=== PATIENT | female | born 1965 | race Caucasian/White ===

== ENCOUNTER 2017-08-14 18:04 | Inpatient (IN) | payer SELFPAY ==
[2017-08-14] MEDS ORDERED: ALBUTEROL SULFATE 0.083% NEB 2.5 MG/3 ML AMPUL NEB ONE ×4 (18:30→19:32)
[2017-08-14] MEDS ORDERED: METHYLPREDNISOLONE INJ 125 MG/2 ML SDV IV ONE (18:30)
[2017-08-14] MEDS ORDERED: IPRATROPIUM/ALBUTEROL 0.5-2.5 MG/3 ML AMPUL NEB ONE (18:30)
--- NOTE | 2017-08-14 18:31 | ER Document Report ---
ED Respiratory Problem - General Chief Complaint: Shortness Of Breath Stated Complaint: SHORTNESS OF BREATH,COUGH Time Seen by Provider: 08/14/17 18:29 Mode of Arrival: Ambulatory Information source: Patient TRAVEL OUTSIDE OF THE [place] IN LAST 30 DAYS: No - HPI Patient complains to provider of: COPD, Cough, Short of breath Onset: Last week Duration: Worse/persistent Quality of pain: No pain Context: Hx COPD, Smoker Short of Breath: Severe Chest pain/discomfort: Tightness Cough: Productive Sputum amount: Small Sputum color: Green Sputum consistency: Mucoid Associated symptoms: Congestion, Cough, Headache, Short of breath, Wheezing Similar symptoms previously: Yes Recently seen / treated by doctor: Yes Notes: Patient is a 52-year-old female presenting to the emergency room from [facility] complaining of cough 1 week which is productive of greenish colored phlegm with shortness of breath and difficulty breathing, as well as a headache and body aches, patient is a heavy smoker smoking at least 1 pack per day for many years, denies any sick contacts, she has had some nausea and vomiting as well, pulse ox was 81% in triage area - Related Data Allergies/Adverse Reactions: No Known Allergies Allergy (Verified 08/14/17 18:12) Past Medical History - General Information source: Patient - Social History Smoking Status: Current Every Day Smoker Family History: Reviewed & Not Pertinent Patient has suicidal ideation: No Patient has homicidal ideation: No - Past Medical History Cardiac Medical History: Denies: Hx Heart Attack, Hx Hypertension Pulmonary Medical History: Denies: Hx Asthma Neurological Medical History: Denies: Hx Cerebrovascular Accident, Hx Seizures Renal/ Medical History: Denies: Hx Peritoneal Dialysis GI Medical History: Denies: Hx Hepatitis, Hx Hiatal Hernia, Hx Ulcer Infectious Medical History: Denies: Hx Hepatitis Past Surgical History: Reports: Hx Hysterectomy. Denies: Hx Mastectomy, Hx Open Heart Surgery, Hx Pacemaker Review of Systems - Review of Systems Constitutional: No symptoms reported EENT: No symptoms reported Cardiovascular: No symptoms reported Respiratory: See HPI Gastrointestinal: See HPI Genitourinary: No symptoms reported Female Genitourinary: No symptoms reported Musculoskeletal: No symptoms reported Skin: No symptoms reported Hematologic/Lymphatic: No symptoms reported Neurological/Psychological: Headaches -: Yes All other systems reviewed and negative Physical Exam - Vital signs Vitals: Temp Pulse Resp BP Pulse Ox 98.3 F 95 20 144/71 H 81 L 08/14/17 18:13 08/14/17 18:13 08/14/17 18:13 08/14/17 18:13 08/14/17 18:13 Interpretation: Hypoxic - General General appearance: Appears well, Alert - HEENT Head: Normocephalic, Atraumatic Eyes: Normal Pupils: PERRL - Respiratory Respiratory status: Labored, Tachypnea Chest status: Nontender Breath sounds: Productive cough, Rhonchi, Wheezing Chest palpation: Normal - Cardiovascular Rhythm: Regular Heart sounds: Normal auscultation Murmur: No - Abdominal Inspection: Normal Distension: No distension Bowel sounds: Normal Tenderness: Nontender Organomegaly: No organomegaly - Back Back: Normal, Nontender - Extremities General upper extremity: Normal inspection, Nontender, Normal color, Normal ROM , Normal temperature General lower extremity: Normal inspection, Nontender, Normal color, Normal ROM , Normal temperature, Normal weight bearing. No: Jeyson's sign - Neurological Neuro grossly intact: Yes Cognition: Normal Orientation: AAOx4 Brent Coma Scale Eye Opening: Spontaneous [place] Coma Scale Verbal: Oriented [place] Coma Scale Motor: Obeys Commands Brent Coma Scale Total: 15 Speech: Normal Motor strength normal: LUE, RUE, LLE, RLE Sensory: Normal - Psychological Associated symptoms: Normal affect, Normal mood - Skin Skin Temperature: Warm Skin Moisture: Dry Skin Color: Normal Course - Re-evaluation Re-evalutation: 08/14/17 20:19 Patient with symptoms consistent with COPD exacerbation, she is a longtime smoker about 1 pack per day, says she is quitting now, remains hypoxic and hypercapnic, although does not appear to be in respiratory distress, she does have wheezing in all [place], respiratory has been called and she will be placed on BiPAP, hospitalist was called who agrees with admission to [facility] for further evaluation and treatment - Vital Signs Vital signs: Temp Pulse Resp BP Pulse Ox 98.3 F 95 22 H 135/73 H 91 L 08/14/17 18:13 08/14/17 18:13 08/14/17 19:02 08/14/17 19:02 08/14/17 19:02 - Laboratory Result Diagrams: 08/14/17 18:21 08/14/17 18:21 Laboratory results interpreted by me: 08/14/17 08/14/17 08/14/17 18:20 18:21 18:21 Hgb 16.6 H Hct 47.8 H MCV 103 H MCH 35.8 H RDW 15.4 H VBG pCO2 76.0 H* VBG HCO3 38.8 H Sodium 147.5 H Carbon Dioxide 35 H Creatinine 0.48 L Glucose 163 H - Diagnostic Test Radiology reviewed: Image reviewed, Reports reviewed - EKG Interpretation by Me EKG shows normal: Sinus rhythm Rate: Normal Rhythm: NSR - Transfer of Care Care transferred to following provider: Dr. Zamorano Critical Care Note - Critical Care Note Total time excluding time spent on procedures (mins): 40 Comments: Patient arrived hypoxic, in moderate respiratory distress from COPD exacerbation , requiring BiPAP, multiple re-evaluations and interventions, and admission to the IMCU Discharge - Discharge Clinical Impression: COPD exacerbation Condition: Serious Disposition: ADMITTED INPATIENT Admitting Provider: Hospitalist Unit Admitted: [facility] Referrals: PAPO NEGRO MD [Primary Care Provider] - Follow up as needed
[2017-08-14 18:47] LABS: ABSOLUTE EOSINOPHILS # (AUTO) 0.1 10^3/uL (0.0-0.6); ABSOLUTE LYMPHOCYTES (AUTO) 1.1 10^3/uL (0.5-4.7); ABSOLUTE MONOCYTES (AUTO) 0.5 10^3/uL (0.1-1.4); ABSOLUTE NEUT (AUTO) 3.3 10^3/uL (1.7-8.2); BASOPHILS % (AUTO) 0.5 % (0-2); EOSINOPHILS % (AUTO) 1.8 % (0-6); HEMATOCRIT 47.8 % (36.0-47.0); HEMOGLOBIN 16.6 g/dL (12.0-15.5); LYMPHOCYTES % (AUTO) 21.5 % (13-45); MEAN CORPUSCULAR HEMOGLOBIN 35.8 pg (27.0-33.4); MEAN CORPUSCULAR HGB CONC 34.7 g/dL (32.0-36.0); MEAN CORPUSCULAR VOLUME 103 fl (80-97); MONOCYTES % (AUTO) 9.6 % (3-13); RED BLOOD COUNT 4.65 10^6/uL (3.72-5.28); RED CELL DISTRIBUTION WIDTH 15.4 % (11.5-14.0); SEGMENTED NEUTROPHILS % (AUTO) 66.6 % (42-78); WHITE BLOOD COUNT 4.9 10^3/uL (4.0-10.5)
--- NOTE | 2017-08-14 18:52 | RADIOLOGY REPORT (SQ) ---
EXAM DESCRIPTION: CHEST SINGLE VIEW COMPLETED DATE/TIME: 08/14/2017 6:44 pm REASON FOR STUDY: db COMPARISON: None. EXAM PARAMETERS: NUMBER OF VIEWS: One view. TECHNIQUE: Single frontal radiographic view of the chest acquired. RADIATION DOSE: NA LIMITATIONS: None. FINDINGS: LUNGS AND PLEURA: Lungs appear somewhat hyperexpanded with flattening of the diaphragms. Mild interstitial changes are suggested. There are no acute infiltrates or effusions. MEDIASTINUM AND HILAR STRUCTURES: No masses. Contour normal. HEART AND VASCULAR STRUCTURES: Heart normal in size. Normal vasculature. BONES: No acute findings. HARDWARE: None in the chest. OTHER: No other significant finding. IMPRESSION: There appear to be mild chronic lung changes with no acute cardiopulmonary disease TECHNICAL DOCUMENTATION: JOB ID: [id number] [employer]- All Rights Reserved
[2017-08-14 19:08] LABS: ALANINE AMINOTRANSFERASE 17 U/L (9-52); ALBUMIN 3.8 g/dL (3.5-5.0); ALKALINE PHOSPHATASE 84 U/L (38-126); ANION GAP 12 (5-19); ASPARTATE AMINO TRANSFERASE 21 U/L (14-36); BILIRUBIN,DIRECT 0.4 mg/dL (0.0-0.4); BILIRUBIN,TOTAL 0.4 mg/dL (0.2-1.3); BLOOD UREA NITROGEN 18 mg/dL (7-20); CALCIUM 9.2 mg/dL (8.4-10.2); CARBON DIOXIDE 35 mmol/L (22-30); CHLORIDE 101 mmol/L (98-107); CREATINE KINASE 55 U/L (30-135); CREATININE RESULT 0.48 mg/dL (0.52-1.25); GLUCOSE 163 mg/dL (75-110); POTASSIUM 3.9 mmol/L (3.6-5.0); SODIUM 147.5 mmol/L (137-145); TOTAL PROTEIN 7.2 g/dL (6.3-8.2)
[2017-08-14 19:18] LABS: CREATINE KINASE MB 0.52 ng/mL (<4.55)
[2017-08-14 19:20] LABS: TROPONIN I < 0.012 ng/mL
[2017-08-14 19:36] LABS: VENOUS BLOOD BASE EXCESS 8.7 mmol/L; VENOUS BLOOD HCO3 38.8 mmol/L (20-32); VENOUS BLOOD PH 7.33 (7.30-7.42)
[2017-08-14] MEDS ORDERED: GUAIFENESIN SYRP 200 MG/10 ML UDC PO PRN (20:16)
[2017-08-14 20:35] LABS: APPEARANCE,URINE SLIGHTLY-CLOUDY; BILIRUBIN,URINE NEGATIVE (NEGATIVE); GLUCOSE, URINE NEGATIVE (NEGATIVE); KETONES,URINE TRACE mg/dL (NEGATIVE); LEUKOCYTE ESTERASE,URINE NEGATIVE (NEGATIVE); NITRITE,URINE NEGATIVE (NEGATIVE); PROTEIN,URINE 30 mg/dL (NEGATIVE)
[2017-08-14] MEDS ORDERED: CHLORPHENIRAMINE MALEATE 4 MG TABLET PO ONE (22:00)
[2017-08-14] MEDS: HEPARIN SOD (PORCINE) 5,000 UNIT/ML 1 ML SYRINGE SUBCUT SCH (22:24)
[2017-08-14] MEDS: FLUTICASONE NASAL SPRAY 50 MCG/SPRY 120 SPRAY/16 GM NASL SCH (22:24)
[2017-08-14] MEDS: LEVOFLOXACIN 750 MG/D5W RTU 750 MG/150 ML RTUPB IV SCH (22:25)
[2017-08-14] MEDS: GUAIFENESIN 600 MG TABLET.SA PO SCH (22:26)
[2017-08-14] MEDS: ACETAMINOPHEN 325 MG TABLET PO PRN (22:27)
[2017-08-15] MEDS: IPRATROPIUM/ALBUTEROL 0.5-2.5 MG/3 ML AMPUL NEB SCH ×4 (01:57→20:56)
--- NOTE | 2017-08-15 05:20 | PDOC H&P ---
History of Present Illness Admission Date/PCP: 08/14/17 20:16 PAPO NEGRO MD Patient complains of: Shortness of breath History of Present Illness: NELLI CHÁVEZ is a 52 year old female with a past medical history of maxillary sinusitis, COPD and tobacco dependence who has been without medications for several months secondary to financial barriers. Over the last week she has had a productive cough of green colored phlegm and worsening shortness of breath. Prompting her to seek evaluation with primary care at [facility] she is found to have tachypnea, tachycardia and pulse oximetry of 81% on room air and referred to the emergency room. Workup suggests exacerbation of COPD with bronchitis multiple nebulizer treatments of albuterol and Atrovent lead to only mild improvement. She is started on empiric antibiotics, Solu-Medrol and referred to the hospitalist for admission. Patient admits flare of sinusitis with postnasal drip and uncontrolled GERD. She denies chest pain nausea vomiting. Past Medical History Cardiac Medical History: Denies: Myocardial Infarction, Hypertension Pulmonary Medical History: Reports: Bronchitis, Chronic Obstructive Pulmonary Disease (COPD), Other - Chronic maxillary sinusitis Denies: Asthma Neurological Medical History: Reports: Migraine Denies: Seizures GI Medical History: Denies: Hepatitis, Hiatal Hernia Psychiatric Medical History: Reports: Tobacco Dependency Hematology: Denies: Anemia, Sickle Cell Disease Past Surgical History Past Surgical History: Reports: Hysterectomy Denies: Amputation, Mastectomy, Pacemaker Social History Information Source: Patient Lives with: Spouse/Significant other Smoking Status: Current Every Day Smoker Cigarettes Packs Per Day: 1 Number of Years Smokin Frequency of Alcohol Use: None Drugs: None Family History Family History: COPD Parental Family History Reviewed: Yes Children Family History Reviewed: Yes Sibling(s) Family History Reviewed.: Yes Medication/Allergy Home Medications: No Home Medications 08/14/17 Allergies/Adverse Reactions: No Known Allergies Allergy (Verified 08/14/17 18:12) Review of Systems Constitutional: PRESENT: as per HPI. ABSENT: chills, fever(s), headache(s), weight gain, weight loss Eyes: ABSENT: visual disturbances Ears: ABSENT: hearing changes Cardiovascular: ABSENT: chest pain, dyspnea on exertion, edema, orthropnea, palpitations Respiratory: PRESENT: as per HPI. ABSENT: cough, hemoptysis Gastrointestinal: ABSENT: abdominal pain, constipation, diarrhea, hematemesis, hematochezia, nausea, vomiting Genitourinary: ABSENT: dysuria, hematuria Musculoskeletal: ABSENT: joint swelling Integumentary: ABSENT: rash, wounds Neurological: ABSENT: abnormal gait, abnormal speech, confusion, dizziness, focal weakness, syncope Psychiatric: ABSENT: anxiety, depression, homidical ideation, suicidal ideation Endocrine: ABSENT: cold intolerance, heat intolerance, polydipsia, polyuria Hematologic/Lymphatic: ABSENT: easy bleeding, easy bruising Physical Exam Vital Signs: Temp Pulse Resp BP Pulse Ox 97.3 F 52 L 16 92/41 L 95 08/15/17 04:44 08/15/17 04:44 08/15/17 04:44 08/15/17 04:44 08/15/17 04:44 Intake & Output 08/13/17 08/14/17 08/15/17 11:59 11:59 11:59 Intake Total 0 Output Total 0 Balance 0 Weight 64.6 kg General appearance: PRESENT: cooperative, mild distress Head exam: PRESENT: atraumatic, normocephalic Eye exam: PRESENT: conjunctiva pink, EOMI, PERRLA. ABSENT: scleral icterus Ear exam: PRESENT: normal external ear exam Mouth exam: PRESENT: moist, tongue midline Neck exam: ABSENT: carotid bruit, JVD, lymphadenopathy, thyromegaly Respiratory exam: PRESENT: accessory muscle use, crackles, prolonged expiratory phas, retraction, symmetrical, tachypnea, wheezes. ABSENT: rhonchi, stridor Cardiovascular exam: PRESENT: RRR. ABSENT: diastolic murmur, rubs, systolic murmur Pulses: PRESENT: normal dorsalis pedis pul Vascular exam: PRESENT: normal capillary refill GI/Abdominal exam: PRESENT: normal bowel sounds, soft. ABSENT: distended, guarding, mass, organolmegaly, rebound, tenderness Rectal exam: PRESENT: deferred Extremities exam: PRESENT: full ROM. ABSENT: calf tenderness, clubbing, pedal edema Neurological exam: PRESENT: alert, awake, oriented to person, oriented to place , oriented to time, oriented to situation, CN II-XII grossly intact. ABSENT: motor sensory deficit Psychiatric exam: PRESENT: appropriate affect, normal mood. ABSENT: homicidal ideation, suicidal ideation Skin exam: PRESENT: dry, intact, warm. ABSENT: cyanosis, rash Results Laboratory Results: 08/14/17 20:18 Urine Color YELLOW Urine Appearance SLIGHTLY-CLOUDY Urine pH 5.0 Ur Specific [place] 1.020 Urine Protein 30 H Urine Glucose (UA) NEGATIVE Urine Ketones TRACE H Urine Blood MODERATE H Urine Nitrite NEGATIVE Ur Leukocyte Esterase NEGATIVE Urine WBC (Auto) 1 Urine RBC (Auto) 15 Impressions: Chest X-Ray 08/14/17 18:29 IMPRESSION: There appear to be mild chronic lung changes with no acute cardiopulmonary disease Assessment & Plan - Diagnosis (1) Acute bronchitis Is this a current diagnosis for this admission?: Yes Plan: Supplemental oxygen, albuterol and Atrovent, prednisone and diuretics follow-up CBC and blood culture (2) Acute maxillary sinusitis Is this a current diagnosis for this admission?: Yes Plan: Chlorpheniramine, Flonase, empiric antibiotics, follow-up CBC (3) COPD exacerbation Is this a current diagnosis for this admission?: Yes Plan: Admit to monitored bed, pneumonia care set, consider reimaging, flutter valve in addition to above (4) Tobacco dependence Is this a current diagnosis for this admission?: Yes Plan: Tobacco Dependence patient received tobacco cessation counseling and offered nicotine replacement options - Time Time Spent: 30 to 50 Minutes - Inpatient Certification Medical Necessity: Need Close Monitoring Due to Risk of Patient Decompensation
[2017-08-15] MEDS: LANSOPRAZOLE 30 MG TAB.RAP.DR PO SCH ×2 (05:24→17:38)
[2017-08-15] MEDS: HEPARIN SOD (PORCINE) 5,000 UNIT/ML 1 ML SYRINGE SUBCUT SCH ×3 (05:25→21:04)
[2017-08-15 05:32] LABS: ABSOLUTE LYMPHOCYTES (AUTO) 0.2 10^3/uL (0.5-4.7); ABSOLUTE MONOCYTES (AUTO) 0.1 10^3/uL (0.1-1.4); HEMOGLOBIN 14.9 g/dL (12.0-15.5); LYMPHOCYTES % (AUTO) 6.5 % (13-45)
[2017-08-15] MEDS: ACETAMINOPHEN 325 MG TABLET PO PRN (05:43)
[2017-08-15 05:48] LABS: BLOOD UREA NITROGEN 28 mg/dL (7-20); CARBON DIOXIDE 33 mmol/L (22-30); CHLORIDE 102 mmol/L (98-107); CREATININE RESULT 0.42 mg/dL (0.52-1.25); GLUCOSE 134 mg/dL (75-110); POTASSIUM 4.6 mmol/L (3.6-5.0)
[2017-08-15 05:49] LABS: ABSOLUTE NEUT (AUTO) 2.4 10^3/uL (1.7-8.2); BASOPHILS % (AUTO) 0.1 % (0-2); HGB HCT DIFFERENCE 3.7; MEAN CORPUSCULAR HEMOGLOBIN 38.3 pg (27.0-33.4); MEAN CORPUSCULAR HGB CONC 36.3 g/dL (32.0-36.0); MEAN CORPUSCULAR VOLUME 106 fl (80-97); MONOCYTES % (AUTO) 3.2 % (3-13); RED BLOOD COUNT 3.89 10^6/uL (3.72-5.28); RED CELL DISTRIBUTION WIDTH 15.6 % (11.5-14.0); SEGMENTED NEUTROPHILS % (AUTO) 90.2 % (42-78); WHITE BLOOD COUNT 2.7 10^3/uL (4.0-10.5)
[2017-08-15 05:52] LABS: ANION GAP 10 (5-19); SODIUM 144.6 mmol/L (137-145)
--- NOTE | 2017-08-15 08:03 | EKG REPORT ---
SEVERITY:- BORDERLINE ECG - SINUS RHYTHM CONSIDER OLD ANTEROSEPTAL [place] : Confirmed by: Jack Garibay MD 15-Aug-2017 08:02:25
--- NOTE | 2017-08-15 10:53 | PDOC CONSULTATION ---
Consultation Consult Date: 08/15/17 Attending physician:: PAPO MARTINEZ Consult reason:: Hypoxic&Hypercapnic respiratory failure/emphysema History of Present Illness Admission Date/PCP: 08/14/17 20:16 PAPO NEGRO MD History of Present Illness: NELLI CHÁVEZ is a 52 year old female complains of cold and stuffiness for the last 2 months which is gotten worse over the last 6 or 7 days resulting in a cough of green phlegm she denies hemoptysis her PPD status is unknown.On presentation to the ER she was tachycardic and had a saturation of 81% on room air. She admits to shortness of breath and dyspnea on exertion has progressed over the last week.She has no history of chronic lung disease as a child or adolescent. She denies being exposed to passive smoke as a child. She herself has smoked a pack a day for approximately 40 years and smoked up until the time of admission. 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 She has 1 cat and 1 dog and she denies any recent travel. She complains of tightness in her chest. She sleeps on one pillow, Admits to frequent PND frequent nocturnal cough no edema. Per her spouse she has had snoring restless sleep nocturia 2-3 times per night unrestful sleep and excessive daytime somnolence.She has been without medical care for quite some time due to financial reasons. w Past Medical History Cardiac Medical History: Denies: Myocardial Infarction, Hypertension Pulmonary Medical History: Reports: Bronchitis, Chronic Obstructive Pulmonary Disease (COPD), Other - Chronic maxillary sinusitis Denies: Asthma EENT Medical History: Reports: Cataracts Neurological Medical History: Reports: Migraine Denies: Seizures Endocrine Medical History: Denies: Diabetes Mellitus Type 1, Diabetes Mellitus Type 2, Hyperthyroidism, Hypothyroidism, Obesity Renal/ Medical History: Denies: Chronic Kidney Disease, End Stage Renal Disease, Nephrolithiasis Malignancy Medical History: Denies: Bone Cancer, Breast Cancer, Cervical Cancer, Lung Cancer, Lymphoma GI Medical History: Reports: Gastroesophageal Reflux Disease Denies: Cirrhosis, Crohn's Disease, Hepatitis, Hiatal Hernia, Ulcerative Colitis Musculoskeltal Medical History: Reports: Arthritis Denies: Fibromyalgia, Gout Skin Medical History: Reports: Other - Easy bruisability Psychiatric Medical History: Reports: Depression, Tobacco Dependency Hematology: Reports: Bleeding Tendencies Denies: Anemia, Sickle Cell Disease Past Surgical History Past Surgical History: Reports: Hysterectomy Denies: Amputation, Mastectomy, Pacemaker Social History Information Source: Patient, Relative, [facility] Records 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 Lives with: Spouse/Significant other Smoking Status: Current Every Day Smoker Cigarettes Packs Per Day: 1 Number of Years Smokin Passive smoke exposure as: Adult Frequency of Alcohol Use: None Hx Recreational Drug Use: No Drugs: None Hx Prescription Drug Abuse: No Do you have pets?: Yes Have you had any respiratory illnesses as a child?: No Have you been exposed to any sick contacts recently?: No Have you had any recent respiratory illnesses?: Yes Have you travelled outside of [place] in the past 12 months?: Yes Family History Family History: CAD, COPD, Malignancy Parental Family History Reviewed: Yes Children Family History Reviewed: Yes Sibling(s) Family History Reviewed.: Yes Medication/Allergy Home Medications: No Home Medications 08/14/17 Allergies/Adverse Reactions: No Known Allergies Allergy (Verified 08/14/17 18:12) Review of Systems Constitutional: PRESENT: chills, fatigue, fever(s), night sweats, weight loss Eyes: ABSENT: visual disturbances Ears: ABSENT: hearing changes Nose, Mouth, and Throat: PRESENT: sore throat. ABSENT: mouth pain, vertigo Cardiovascular: PRESENT: chest pain, dyspnea on exertion. ABSENT: edema, orthropnea, palpitations Respiratory: PRESENT: cough, dyspnea, sputum. ABSENT: hemoptysis Gastrointestinal: ABSENT: abdominal pain, bloating, coffee ground emesis, constipation, diarrhea, dysphagia, heartburn, hematemesis, hematochezia, melena , nausea, vomiting Genitourinary: PRESENT: nocturia. ABSENT: difficulty urinating, dysuria Musculoskeletal: PRESENT: back pain, muscle weakness Neurological: ABSENT: abnormal speech, confusion, convulsions, dizziness, focal weakness, frequent falls, lack of coordination, memory loss, syncope, vertigo Endocrine: ABSENT: cold intolerance, flushing, heat intolerance, polydipsia, polyuria Hematologic/Lymphatic: PRESENT: easy bruising Physical Exam Vital Signs: Temp Pulse Resp BP Pulse Ox 97.6 F 63 18 110/53 L 93 08/15/17 07:34 08/15/17 08:23 08/15/17 08:23 08/15/17 07:34 08/15/17 08:23 Intake & Output 08/14/17 08/15/17 08/16/17 06:59 06:59 06:59 Intake Total 150 Output Total 0 Balance 150 Weight 64.6 kg General appearance: PRESENT: no acute distress, cooperative, disheveled, thin, well-developed Head exam: PRESENT: atraumatic, normocephalic Eye exam: PRESENT: conjunctiva pale, EOMI Mouth exam: PRESENT: dry mucosa, neck supple, tongue midline Neck exam: ABSENT: carotid bruit, JVD, lymphadenopathy, thyromegaly Respiratory exam: PRESENT: decreased breath sounds, prolonged expiratory phas, rales, rhonchi, symmetrical, unlabored, wheezes. ABSENT: accessory muscle use, chest wall tenderness, clear to auscultation larry, crackles, retraction, stridor , tachypnea Cardiovascular exam: PRESENT: RRR, +S1, +S2 Pulses: PRESENT: normal radial pulses GI/Abdominal exam: PRESENT: normal bowel sounds, soft. ABSENT: distended, guarding, mass, organolmegaly, rebound, tenderness Extremities exam: ABSENT: calf tenderness, clubbing, joint swelling, pedal edema , tenderness Musculoskeletal exam: ABSENT: deformity, dislocation, tenderness Neurological exam: PRESENT: alert, awake Psychiatric exam: PRESENT: normal mood Skin exam: PRESENT: dry, warm Results Laboratory Results: 08/15/17 04:54 08/15/17 04:54 08/14/17 08/15/17 08/15/17 20:18 04:54 04:54 WBC 2.7 L D RBC 3.89 Hgb 14.9 Hct 41.0 MCV 106 H MCH 38.3 H MCHC 36.3 H RDW 15.6 H Plt Count 158 Seg Neutrophils % 90.2 H Lymphocytes % 6.5 L Monocytes % 3.2 Eosinophils % 0.0 Basophils % 0.1 Absolute Neutrophils 2.4 Absolute Lymphocytes 0.2 L Absolute Monocytes 0.1 Absolute Eosinophils 0.0 Absolute Basophils 0.0 Sodium 144.6 Potassium 4.6 Chloride 102 Carbon Dioxide 33 H Anion Gap 10 BUN 28 H Creatinine 0.42 L Est GFR ( Amer) > 60 Est GFR (Non-Af Amer) > 60 Glucose 134 H Calcium 9.0 Urine Color YELLOW Urine Appearance SLIGHTLY-CLOUDY Urine pH 5.0 Ur Specific [place] 1.020 Urine Protein 30 H Urine Glucose (UA) NEGATIVE Urine Ketones TRACE H Urine Blood MODERATE H Urine Nitrite NEGATIVE Ur Leukocyte Esterase NEGATIVE Urine WBC (Auto) 1 Urine RBC (Auto) 15 Impressions: Chest X-Ray 08/14/17 18:29 IMPRESSION: There appear to be mild chronic lung changes with no acute cardiopulmonary disease Assessment & Plan - Diagnosis (1) Acute maxillary sinusitis Qualifiers: Recurrence: recurrent Qualified Code(s): J01.01 - Acute recurrent maxillary sinusitis Is this a current diagnosis for this admission?: Yes (2) COPD exacerbation Is this a current diagnosis for this admission?: Yes Plan: Hypoxic hypercapnic respiratory failure;Continue bronchodilators as initiated; Minimal O2 to keep saturation above 90% Generic Name Dose Route Start Last Admin Trade Name Freq PRN Reason Stop Dose Admin Guaifenesin 1,200 mg 08/14/17 22:00 08/14/17 22:26 Mucinex Sr 600 Mg Tablet.Sa PO 09/13/17 21:59 1,200 mg Q12 ETHEL Guaifenesin 200 mg 08/14/17 20:16 Robitussin Syrup 200 Mg/10 Ml Ud Cup PO 09/13/17 20:15 Q4HP PRN COUGH Prednisone 20 mg 08/15/17 10:00 Deltasone 20 Mg Tablet PO 09/14/17 09:59 BID ETHEL Albuterol/Ipratropium 3 ml 08/15/17 02:00 08/15/17 08:23 Duoneb 3 Ml Ampul NEB 09/14/17 01:59 3 ml RTQ6 ETHEL Fluticasone Propionate 2 spray 08/14/17 22:00 08/14/17 22:24 Flonase Nasal Dozier 50 Mcg/Dozier 16 Gm NASL 09/13/17 21:59 2 spray Q12 ETHEL Labs- All tests 24 hr 08/14/17 08/15/17 18:20 04:54 VBG pH 7.33 VBG pCO2 76.0 H* Carbon Dioxide 33 H (3) Tobacco dependence Is this a current diagnosis for this admission?: Yes Plan: Sinus films plain consider transdermal nicotine patch (4) Macrocytic anemia Is this a current diagnosis for this admission?: Yes Plan: Check thiamine folate B12 etoh???
[2017-08-15] MEDS: GUAIFENESIN 600 MG TABLET.SA PO SCH ×2 (11:46→21:03)
[2017-08-15] MEDS: PREDNISONE 20 MG TABLET PO SCH ×2 (11:47→17:39)
[2017-08-15] MEDS: FLUTICASONE NASAL SPRAY 50 MCG/SPRY 120 SPRAY/16 GM NASL SCH ×2 (11:47→21:03)
--- NOTE | 2017-08-15 13:08 | Progress Note ---
Provider Note Provider Note: 52-year-old woman looks older than stated age has been smoking for over 40 years currently smoke 1 pack a day presented to the hospital presented to the hospital overnight with complaint of worsening shortness of breath associated productive cough of greenish sputum. She was found to be hypoxic on presentation of saturation of 81% on room air associated with tachypnea and tachycardia. Chest x-ray on presentation without acute infiltrate but water changes consistent with COPD. Initially required to be on BiPAP. She was seen and examined this morning, but improvement of her breathing and was on 5 L nasal cannula. Pulmonary was asked to see her. Continue oxygen, bronchodilator therapy and steroids and IV Levaquin. Smoking cessation greatly encouraged.
[2017-08-15] MEDS: LEVOFLOXACIN 750 MG/D5W RTU 750 MG/150 ML RTUPB IV SCH (21:04)
[2017-08-15 21:43] LABS: ABSOLUTE LYMPHOCYTES (AUTO) 0.4 10^3/uL (0.5-4.7); ABSOLUTE MONOCYTES (AUTO) 0.5 10^3/uL (0.1-1.4); ABSOLUTE NEUT (AUTO) 5.1 10^3/uL (1.7-8.2); BASOPHILS % (AUTO) 0.2 % (0-2); EOSINOPHILS % (AUTO) 0.1 % (0-6); HEMOGLOBIN 15.2 g/dL (12.0-15.5); HGB HCT DIFFERENCE 0.6; LYMPHOCYTES % (AUTO) 6.3 % (13-45); MEAN CORPUSCULAR HGB CONC 33.8 g/dL (32.0-36.0); MONOCYTES % (AUTO) 8.4 % (3-13); RED BLOOD COUNT 4.47 10^6/uL (3.72-5.28); RED CELL DISTRIBUTION WIDTH 15.4 % (11.5-14.0)
[2017-08-15 21:51] LABS: MEAN CORPUSCULAR VOLUME 101 fl (80-97)
[2017-08-16] MEDS: IPRATROPIUM/ALBUTEROL 0.5-2.5 MG/3 ML AMPUL NEB SCH ×4 (02:04→20:19)
[2017-08-16] MEDS: HEPARIN SOD (PORCINE) 5,000 UNIT/ML 1 ML SYRINGE SUBCUT SCH ×3 (05:24→21:16)
[2017-08-16] MEDS: LANSOPRAZOLE 30 MG TAB.RAP.DR PO SCH ×2 (05:24→17:13)
--- NOTE | 2017-08-16 09:00 | RADIOLOGY REPORT (SQ) ---
EXAM DESCRIPTION: PARANASAL SINUSES COMPLETED DATE/TIME: 08/16/2017 8:45 am REASON FOR STUDY: hx of sinusitis COMPARISON: None. NUMBER OF VIEWS: Three views, AP, Perez, lateral view TECHNIQUE: Images of the paranasal sinuses acquired. LIMITATIONS: None. FINDINGS: ORBITS: No fracture. No foreign body. SINUSES: No mucosal thickening. No air fluid levels. FACIAL BONES: No fracture. OTHER: No other significant finding. IMPRESSION: NO FOREIGN BODY OR FRACTURE. NO PLAIN RADIOGRAPHIC EVIDENCE FOR SINUS DISEASE. TECHNICAL DOCUMENTATION: JOB ID: [id number] [employer]- All Rights Reserved
[2017-08-16] MEDS ORDERED: NICOTINE 21 MG/24 HR PATCH.TD24 TD PRN ×2 (09:55→15:30)
[2017-08-16] MEDS: FLUTICASONE NASAL SPRAY 50 MCG/SPRY 120 SPRAY/16 GM NASL SCH ×2 (09:59→21:16)
[2017-08-16] MEDS: GUAIFENESIN 600 MG TABLET.SA PO SCH ×2 (10:00→21:15)
[2017-08-16] MEDS: PREDNISONE 20 MG TABLET PO SCH ×2 (10:00→17:13)
[2017-08-16 10:53] LABS: FOLATE 14.3 ng/mL (>2.76)
[2017-08-16 12:15] LABS: ARTERIAL BLOOD BASE EXCESS 9.8 mmol/L; ARTERIAL BLOOD O2 SATURATION 89.2 % (94-98)
--- NOTE | 2017-08-16 12:38 | PDOC PROGRESS REPORT ---
Subjective Progress Note for:: 08/16/17 - acute/chronic resp failure Subjective:: Feeling a little better hoping to go home soon Physical Exam Vital Signs: Temp Pulse Resp BP Pulse Ox 98.3 F 66 19 119/62 93 08/16/17 10:10 08/16/17 10:10 08/16/17 10:10 08/16/17 10:10 08/16/17 10:10 Intake & Output 08/15/17 08/16/17 08/17/17 06:59 06:59 06:59 Intake Total 150 2023 340 Output Total 0 Balance 150 2023 340 Weight 64.6 kg 68.2 kg General appearance: PRESENT: no acute distress, cooperative, disheveled, thin Head exam: PRESENT: atraumatic, normocephalic Eye exam: PRESENT: conjunctiva pale, EOMI Mouth exam: PRESENT: dry mucosa, neck supple, tongue midline Neck exam: ABSENT: carotid bruit, JVD, lymphadenopathy, thyromegaly, tracheostomy Respiratory exam: PRESENT: decreased breath sounds, prolonged expiratory phas, rhonchi, symmetrical, unlabored, wheezes. ABSENT: accessory muscle use, chest wall tenderness, clear to auscultation larry, crackles, rales, retraction, stridor , tachypnea Cardiovascular exam: PRESENT: RRR, +S1, +S2. ABSENT: irregular rhythm Pulses: PRESENT: normal radial pulses GI/Abdominal exam: PRESENT: normal bowel sounds, soft. ABSENT: distended, guarding, mass, organolmegaly, rebound, tenderness Extremities exam: ABSENT: calf tenderness, clubbing, joint swelling, pedal edema , tenderness Musculoskeletal exam: ABSENT: deformity, dislocation, tenderness Neurological exam: PRESENT: alert, awake. ABSENT: altered Psychiatric exam: PRESENT: normal mood Skin exam: PRESENT: dry, warm Results Laboratory Results: 08/15/17 21:34 08/15/17 04:54 08/15/17 08/15/17 08/15/17 04:54 20:27 21:34 WBC Cancelled 6.0 D RBC Cancelled 4.47 Hgb Cancelled 15.2 Hct Cancelled 45.0 MCV Cancelled 101 H D MCH Cancelled 34.0 H MCHC Cancelled 33.8 RDW Cancelled 15.4 H Plt Count Cancelled 167 Seg Neutrophils % Cancelled 85.0 H Lymphocytes % Cancelled 6.3 L Monocytes % Cancelled 8.4 Eosinophils % Cancelled 0.1 Basophils % Cancelled 0.2 Absolute Neutrophils Cancelled 5.1 Absolute Lymphocytes Cancelled 0.4 L Absolute Monocytes Cancelled 0.5 Absolute Eosinophils Cancelled 0.0 Absolute Basophils Cancelled 0.0 Carbonic Acid HCO3/H2CO3 Ratio ABG pH ABG pCO2 ABG pO2 ABG HCO3 ABG O2 Saturation ABG Base Excess FiO2 Vitamin B12 455.0 Folate 14.30 08/16/17 11:51 WBC RBC Hgb Hct MCV MCH MCHC RDW Plt Count Seg Neutrophils % Lymphocytes % Monocytes % Eosinophils % Basophils % Absolute Neutrophils Absolute Lymphocytes Absolute Monocytes Absolute Eosinophils Absolute Basophils Carbonic Acid 1.71 H HCO3/H2CO3 Ratio 21:1 ABG pH 7.43 ABG pCO2 56.8 H ABG pO2 56.0 L ABG HCO3 36.5 H ABG O2 Saturation 89.2 L ABG Base Excess 9.8 FiO2 2L Vitamin B12 Folate Impressions: Chest X-Ray 08/14/17 18:29 IMPRESSION: There appear to be mild chronic lung changes with no acute cardiopulmonary disease Sinuses X-Ray 08/16/17 00:00 IMPRESSION: NO FOREIGN BODY OR FRACTURE. NO PLAIN RADIOGRAPHIC EVIDENCE FOR SINUS DISEASE. Assessment & Plan - Diagnosis (1) Acute maxillary sinusitis Qualifiers: Recurrence: recurrent Qualified Code(s): J01.01 - Acute recurrent maxillary sinusitis Is this a current diagnosis for this admission?: Yes Plan: No evidence to substantiate radiographically (2) COPD exacerbation Is this a current diagnosis for this admission?: Yes Plan: Improving however patient has PCO2 and his PO2 on 2 L of nasal cannula consider trial of BiPAP (3) Tobacco dependence Is this a current diagnosis for this admission?: Yes (4) Macrocytic anemia Is this a current diagnosis for this admission?: Yes
--- NOTE | 2017-08-16 15:07 | PDOC PROGRESS REPORT ---
Subjective Progress Note for:: 08/16/17 Subjective:: 52-year-old woman looks older than stated age has been smoking for over 40 years currently smoke 1 pack a day presented to the hospital presented to the hospital on August 15, 2017 with complaint of worsening shortness of breath associated productive cough of greenish sputum. She was found to be hypoxic on presentation of saturation of 81% on room air associated with tachypnea and tachycardia. Chest x-ray on presentation without acute infiltrate but water changes consistent with COPD. Initially required to be on BiPAP and she has been weaned off. She was counseled on smoking cessation. She was seen and examined this morning, she reports feeling and breathing better. Denies fever and chills Physical Exam Vital Signs: Temp Pulse Resp BP Pulse Ox 98.3 F 71 18 119/62 91 L 08/16/17 10:10 08/16/17 14:05 08/16/17 14:05 08/16/17 10:10 08/16/17 14:05 Intake & Output 08/15/17 08/16/17 08/17/17 06:59 06:59 06:59 Intake Total 150 2023 340 Output Total 0 Balance 150 2023 340 Weight 64.6 kg 68.2 kg General appearance: PRESENT: no acute distress, other - Looks older than stated age Head exam: PRESENT: atraumatic, normocephalic Eye exam: PRESENT: EOMI Mouth exam: PRESENT: moist, tongue midline Neck exam: PRESENT: full ROM. ABSENT: JVD Respiratory exam: PRESENT: decreased breath sounds, symmetrical. ABSENT: accessory muscle use, unlabored, wheezes Cardiovascular exam: PRESENT: RRR. ABSENT: systolic murmur GI/Abdominal exam: PRESENT: normal bowel sounds, soft. ABSENT: distended, tenderness Rectal exam: PRESENT: deferred Extremities exam: PRESENT: full ROM. ABSENT: pedal edema Musculoskeletal exam: PRESENT: full ROM Neurological exam: PRESENT: alert, oriented to person, oriented to place, oriented to time, oriented to situation Psychiatric exam: PRESENT: appropriate affect Skin exam: PRESENT: dry, warm Results Laboratory Results: 08/15/17 21:34 08/15/17 04:54 08/15/17 08/15/17 08/15/17 04:54 20:27 21:34 WBC Cancelled 6.0 D RBC Cancelled 4.47 Hgb Cancelled 15.2 Hct Cancelled 45.0 MCV Cancelled 101 H D MCH Cancelled 34.0 H MCHC Cancelled 33.8 RDW Cancelled 15.4 H Plt Count Cancelled 167 Seg Neutrophils % Cancelled 85.0 H Lymphocytes % Cancelled 6.3 L Monocytes % Cancelled 8.4 Eosinophils % Cancelled 0.1 Basophils % Cancelled 0.2 Absolute Neutrophils Cancelled 5.1 Absolute Lymphocytes Cancelled 0.4 L Absolute Monocytes Cancelled 0.5 Absolute Eosinophils Cancelled 0.0 Absolute Basophils Cancelled 0.0 Carbonic Acid HCO3/H2CO3 Ratio ABG pH ABG pCO2 ABG pO2 ABG HCO3 ABG O2 Saturation ABG Base Excess FiO2 Vitamin B12 455.0 Folate 14.30 08/16/17 11:51 WBC RBC Hgb Hct MCV MCH MCHC RDW Plt Count Seg Neutrophils % Lymphocytes % Monocytes % Eosinophils % Basophils % Absolute Neutrophils Absolute Lymphocytes Absolute Monocytes Absolute Eosinophils Absolute Basophils Carbonic Acid 1.71 H HCO3/H2CO3 Ratio 21:1 ABG pH 7.43 ABG pCO2 56.8 H ABG pO2 56.0 L ABG HCO3 36.5 H ABG O2 Saturation 89.2 L ABG Base Excess 9.8 FiO2 2L Vitamin B12 Folate Impressions: Chest X-Ray 08/14/17 18:29 IMPRESSION: There appear to be mild chronic lung changes with no acute cardiopulmonary disease Sinuses X-Ray 08/16/17 00:00 IMPRESSION: NO FOREIGN BODY OR FRACTURE. NO PLAIN RADIOGRAPHIC EVIDENCE FOR SINUS DISEASE. Assessment & Plan - Diagnosis (1) Acute exacerbation of chronic obstructive pulmonary disease (COPD) Is this a current diagnosis for this admission?: Yes Plan: Chest x-ray on admission without evidence of infiltrate Continue IV Levaquin and steroids On bronchodilator and oxygen therapy Continue to titrate down O2 as tolerated Pulmonary input appreciated (2) Acute bronchitis Is this a current diagnosis for this admission?: Yes Plan: Likely viral Continue current management (3) History of sinusitis Is this a current diagnosis for this admission?: Yes Plan: X-ray this admission without evidence of acute findings (4) Macrocytic anemia Is this a current diagnosis for this admission?: Yes Plan: Check B12 and folate (5) Tobacco dependence Is this a current diagnosis for this admission?: Yes Plan: Smoking cessation encouraged Nicotine replacement added (6) Hypernatremia Is this a current diagnosis for this admission?: Yes Plan: Resolved - Time Time Spent with patient: 25-34 minutes
--- NOTE | 2017-08-16 20:43 | Physician Advisory Note ---
Physician Advisor ProgressNote .: Pursuant to the plan for [facility], I have reviewed the medical record for this patient. Physician Advisor Statement: Please consider documenting, if you agree: 1. "Acute Hypoxemic Respiratory Failure, evidenced by labored breathing, respiratory distress, tachypnea, and O2 sat 81% on RA in ED triage". Thanks! CK
[2017-08-16] MEDS ORDERED: LEVOFLOXACIN 750 MG TABLET PO SCH (22:00)
[2017-08-17] MEDS: IPRATROPIUM/ALBUTEROL 0.5-2.5 MG/3 ML AMPUL NEB SCH ×3 (02:20→14:17)
[2017-08-17] MEDS: HEPARIN SOD (PORCINE) 5,000 UNIT/ML 1 ML SYRINGE SUBCUT SCH ×2 (05:31→15:23)
[2017-08-17] MEDS: LANSOPRAZOLE 30 MG TAB.RAP.DR PO SCH (05:31)
--- NOTE | 2017-08-17 09:19 | PDOC PROGRESS REPORT ---
Subjective Progress Note for:: 08/17/17 - acute/chronic resp failure Subjective:: Feeling a little better Physical Exam Vital Signs: Temp Pulse Resp BP Pulse Ox 98.2 F 56 L 18 130/69 H 92 08/17/17 07:58 08/17/17 07:58 08/17/17 07:58 08/17/17 07:58 08/17/17 07:58 Intake & Output 08/16/17 08/17/17 08/18/17 06:59 06:59 06:59 Intake Total 2023 162 Balance 2023 162 Weight 68.2 kg 66.1 kg General appearance: PRESENT: no acute distress, cooperative, disheveled, well- developed Head exam: PRESENT: atraumatic, normocephalic Eye exam: PRESENT: conjunctiva pale, EOMI Mouth exam: PRESENT: dry mucosa, neck supple, tongue midline Neck exam: ABSENT: carotid bruit, JVD, lymphadenopathy, thyromegaly Respiratory exam: PRESENT: decreased breath sounds, prolonged expiratory phas, rhonchi, symmetrical, unlabored. ABSENT: accessory muscle use, chest wall tenderness, clear to auscultation larry, crackles, rales, stridor, tachypnea, wheezes Cardiovascular exam: PRESENT: RRR, +S1, +S2. ABSENT: tachycardia Pulses: ABSENT: normal radial pulses GI/Abdominal exam: PRESENT: normal bowel sounds, soft. ABSENT: distended, guarding, mass, organolmegaly, rebound, tenderness Extremities exam: ABSENT: calf tenderness, clubbing, joint swelling, pedal edema , tenderness Musculoskeletal exam: ABSENT: deformity, dislocation, tenderness Neurological exam: PRESENT: alert, awake Psychiatric exam: PRESENT: normal mood Skin exam: PRESENT: dry, warm Results Laboratory Results: 08/15/17 21:34 08/15/17 04:54 08/15/17 08/16/17 04:54 11:51 Carbonic Acid 1.71 H HCO3/H2CO3 Ratio 21:1 ABG pH 7.43 ABG pCO2 56.8 H ABG pO2 56.0 L ABG HCO3 36.5 H ABG O2 Saturation 89.2 L ABG Base Excess 9.8 FiO2 2L Vitamin B12 455.0 Folate 14.30 Impressions: Chest X-Ray 08/14/17 18:29 IMPRESSION: There appear to be mild chronic lung changes with no acute cardiopulmonary disease Sinuses X-Ray 08/16/17 00:00 IMPRESSION: NO FOREIGN BODY OR FRACTURE. NO PLAIN RADIOGRAPHIC EVIDENCE FOR SINUS DISEASE. Assessment & Plan - Diagnosis (1) Acute maxillary sinusitis Qualifiers: Recurrence: recurrent Qualified Code(s): J01.01 - Acute recurrent maxillary sinusitis Is this a current diagnosis for this admission?: No (2) COPD exacerbation Is this a current diagnosis for this admission?: Yes Plan: hypercapnic hypoxix suspect will need home O2 and bi pap (3) Tobacco dependence Is this a current diagnosis for this admission?: Yes Plan: Sinus films plain consider transdermal nicotine patch (4) Macrocytic anemia Is this a current diagnosis for this admission?: Yes Plan: Check thiamine folate B12 etoh???
[2017-08-17] MEDS: FLUTICASONE NASAL SPRAY 50 MCG/SPRY 120 SPRAY/16 GM NASL SCH (09:24)
[2017-08-17] MEDS: GUAIFENESIN 600 MG TABLET.SA PO SCH (09:24)
[2017-08-17] MEDS: PREDNISONE 20 MG TABLET PO SCH (09:25)
--- NOTE | 2017-08-17 10:18 | PDOC DISCHARGE SUMMARY ---
General - Admit/Disc Date/PCP Admission Date/Primary Care Provider: 08/14/17 20:16 PAOP NEGRO MD Discharge Date: 08/17/17 - Discharge Diagnosis (1) Acute hypoxemic respiratory failure Is this a current diagnosis for this admission?: Yes (2) Acute exacerbation of chronic obstructive pulmonary disease (COPD) Is this a current diagnosis for this admission?: Yes (3) Acute bronchitis Is this a current diagnosis for this admission?: Yes (4) History of sinusitis Is this a current diagnosis for this admission?: Yes (5) Macrocytic anemia Is this a current diagnosis for this admission?: Yes (6) Tobacco dependence Is this a current diagnosis for this admission?: Yes (7) Hypernatremia Is this a current diagnosis for this admission?: Yes - Additional Information Discharge Diet: As Tolerated Discharge Activity: Activity As Tolerated Home Medications: Budesonide/Formoterol Fumarate [Symbicort HFA 160-4.5 mcg Inhaler 6 gm] 2 puff IH Q12 #1 inhaler 08/17/17 Fluticasone Propionate [Flonase Nasal [place] 50 Mcg/[place] 16 gm] 2 spray NASL Q12 #1 spray.pump 08/17/17 Guaifenesin [Mucinex Sr 600 mg Tablet.sa] 1,200 mg PO Q12 #14 tablet.sa Prednisone [Sterapred Ds] 10 mg PO DAILY #1 tab.ds.pk 08/17/17 History of Present Illness History of Present Illness: NELLI CHÁVEZ is a 52 year old female Hospital Course Hospital Course: 52-year-old woman looks older than stated age has been smoking for over 40 years currently smoke 1 pack a day presented to the hospital presented to the hospital on August 15, 2017 with complaint of worsening shortness of breath associated productive cough of greenish sputum. She was found to be hypoxic on presentation of saturation of 81% on room air associated with tachypnea and tachycardia. Chest x-ray on presentation without acute infiltrate but water changes consistent with COPD. Initially required to be on BiPAP and she has been weaned off. She was started on IV Levaquin and p.o. prednisone. She was seen and evaluated by pulmonary. She was continued on bronchodilator therapy and her O2 has been titrated down. She was off O2 this am during my round saturation of 90% at rest on room air. She was evaluated for home O2 with saturation dropping to high 70s and ambulation. Oxygen improved to 92% on 3 L nasal cannula. Case management consulted for arrangement for home O2. Patient brought up concern financial situation as she will be able to afford oxygen. Case management to assist. Pulmonary recommended that she will need oxygen and possible BiPAP. To be referred to pulmonary outpatient for further management. She was counseled on smoking cessation. Prescription for prednisone taper pack, budesonide inh and Mucinex given. She will need to get a PCP and follow-up with pulmonary. Physical Exam Vital Signs: Temp Pulse Resp BP Pulse Ox 98.2 F 58 L 18 130/69 H 88 L 08/17/17 07:58 08/17/17 08:22 08/17/17 08:22 08/17/17 07:58 08/17/17 08:22 Intake & Output 08/16/17 08/17/17 08/18/17 06:59 06:59 06:59 Intake Total 2023 162 Balance 2023 1620 Weight 68.2 kg 66.1 kg General appearance: PRESENT: no acute distress, other - looks older than stated age Head exam: PRESENT: atraumatic, normocephalic Eye exam: PRESENT: conjunctiva pink, EOMI. ABSENT: scleral icterus Ear exam: PRESENT: normal external ear exam Mouth exam: PRESENT: moist, tongue midline Neck exam: ABSENT: carotid bruit, JVD, lymphadenopathy, thyromegaly Respiratory exam: PRESENT: clear to auscultation larry. ABSENT: rales, rhonchi, wheezes Cardiovascular exam: PRESENT: RRR. ABSENT: diastolic murmur, rubs, systolic murmur Vascular exam: PRESENT: normal capillary refill GI/Abdominal exam: PRESENT: normal bowel sounds, soft. ABSENT: distended, guarding, mass, organolmegaly, rebound, tenderness Rectal exam: PRESENT: deferred Extremities exam: PRESENT: full ROM. ABSENT: calf tenderness, clubbing, pedal edema Neurological exam: PRESENT: alert, awake, oriented to person, oriented to place , oriented to time, oriented to situation. ABSENT: motor sensory deficit Psychiatric exam: PRESENT: appropriate affect, normal mood. ABSENT: homicidal ideation, suicidal ideation Skin exam: PRESENT: dry, intact, warm. ABSENT: cyanosis, rash Results Laboratory Results: 08/15/17 21:34 08/15/17 04:54 08/15/17 08/16/17 04:54 11:51 Carbonic Acid 1.71 H HCO3/H2CO3 Ratio 21:1 ABG pH 7.43 ABG pCO2 56.8 H ABG pO2 56.0 L ABG HCO3 36.5 H ABG O2 Saturation 89.2 L ABG Base Excess 9.8 FiO2 2L Vitamin B12 455.0 Folate 14.30 Impressions: Chest X-Ray 08/14/17 18:29 IMPRESSION: There appear to be mild chronic lung changes with no acute cardiopulmonary disease Sinuses X-Ray 08/16/17 00:00 IMPRESSION: NO FOREIGN BODY OR FRACTURE. NO PLAIN RADIOGRAPHIC EVIDENCE FOR SINUS DISEASE. Plan Time Spent: Greater than 30 Minutes
[2017-08-17] MEDS ORDERED: BUDESONIDE/FORMOTEROL 160-4.5 MCG 60 PUFF/6 GM MDI IH ONE (12:00)
[2017-08-17 15:20] VITALS: BP 102/85
[2017-08-17] MEDS ORDERED: BUDESONIDE/FORMOTEROL 160-4.5 MCG 60 PUFF/6 GM MDI IH SCH (22:00)
== END 2017-08-17 15:40 | disposition home or self-care (01) | DRG 189 ==
LOC: ER 18:04 → EH 20:16 → 3W 21:54
PROVIDERS: ADMIT Internal Medicine; ATTEND Internal Medicine
DX: J96.21 Acute and chronic respiratory failure with hypoxia (principal); J44.1 Chronic obstructive pulmonary disease with (acute) exacerbation; J44.0 Chronic obstructive pulmonary disease with (acute) lower respiratory infection; E87.0 Hyperosmolality and hypernatremia; J96.22 Acute and chronic respiratory failure with hypercapnia; F17.210 Nicotine dependence, cigarettes, uncomplicated; K21.9 Gastro-esophageal reflux disease without esophagitis; J01.00 Acute maxillary sinusitis, unspecified; J20.9 Acute bronchitis, unspecified; D53.9 Nutritional anemia, unspecified
CPT/HCPCS: 36415; 70220; 71010; 80048; 80053; 81001; 82550; 82553; 82607; 82746; 82803; 83880; 84484; 85025; 87070; 87205; 93005; 93010; 94640; 94660; 94667; 94668; 96374; 99291; J1644; J1956; J2930; J3490; J7512; J7620

== ENCOUNTER → 2017-10-29 | Outpatient (CLI) | payer SELFPAY ==
[2017-10-29 13:09] LABS: ARTERIAL BLOOD BASE EXCESS 1.3 mmol/L; ARTERIAL BLOOD H2CO3 1.45 mmol/L (1.05-1.35); ARTERIAL BLOOD HCO3 27.3 mmol/L (20-26); ARTERIAL BLOOD O2 SATURATION 87.1 % (94-98); ARTERIAL BLOOD PCO2 48.1 mmHg (35-45); ARTERIAL BLOOD PH 7.37 (7.35-7.45); ARTERIAL BLOOD PO2 54.2 mmHg (80-100); ARTERIAL BLOOD TOTAL CO2 28.8 mmol/L (21-25)
[2017-10-29 13:10] LABS: ARTERIAL BLOOD FIO2 2.5L
== END ==
LOC: OD 12:17
PROVIDERS: ATTEND Physician Assistant
DX: J44.9 Chronic obstructive pulmonary disease, unspecified (principal)
CPT/HCPCS: 82803

== ENCOUNTER → 2018-02-05 | Outpatient (CLI) | payer MEDICAID ==
--- NOTE | 2018-02-05 14:39 | RADIOLOGY REPORT (SQ) ---
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 TECHNIQUE: CT scan performed of the chest without intravenous contrast. Images reviewed with lung, soft tissue and bone windows. Reconstructed coronal and sagittal MPR images reviewed. All images st ored on PACS. All CT scanners at this facility use dose modulation, iterative reconstruction, and/or weight based d osing when appropriate to reduce radiation dose to as low as reasonably achievable (ALARA). [facility]: Dose Right [facility]: CareDose [facility]: Dose Right [facility]: Teradose 4D [facility]: Dynex RADIATION DOSE: CT Rad equipment meets quality standard of care and radiation dose reduction techniq ues were employed. CTDIvol: 4.2 mGy. DLP: 169 mGy-cm. mGy. LIMITATIONS: No technical limitations. FINDINGS: LUNGS AND PLEURA: Very subtle thickening of the interlobular septa along the periphery of both lung bases. No ground-glass opacities worrisome for alveolitis. No tree-in-bud densities to suggest bronchioliti s. No significant centrilobular emphysema. No acute infiltrates. No pleural effusion. No pneumothorax. Airways are widely patent. There is b enign appearing bandlike scarring in the right middle lobe along the minor fissure. HILAR AND MEDIASTINAL STRUCTURES: No identified masses or abnormal nodes. No obvious aneurysm. Smal l hiatal hernia. HEART AND VASCULAR STRUCTURES: No aneurysm. No pericardial effusion. UPPER ABDOMEN: No significant findings. Limited exam. THYROID AND OTHER SOFT TISSUES: 1.8 x 1.2 cm right posterior midpole thyroid nodule axial image 7 thy roid ultrasound recommended for followup. BONES: Osteopenic. HARDWARE: None in the chest. OTHER: No other significant findings. IMPRESSION: Very subtle thickening of the interlobular septa along the periphery of both lung bases. TECHNICAL DOCUMENTATION: JOB ID: [id number] Quality ID # [id number]: Final reports with documentation of one or more dose reduction techniques (e.g., Au tomated exposure control, adjustment of the mA and/or kV according to patient size, use of iterative reconstruction technique) 2010 [employer]- All Rights Reserved Reading location - IP/workstation name: [email or web address]
== END ==
LOC: RAD 12:30
PROVIDERS: ATTEND Physician Assistant
DX: J84.9 Interstitial pulmonary disease, unspecified (principal)
CPT/HCPCS: 71250

== ENCOUNTER → 2018-02-28 | Day surgery (SDC) | payer MEDICAID ==
[~2018-02-28] MED LIST: LIDOCAINE 1% INJ-PF (10 MG/ML) 30 ML SDV ONE
--- NOTE | 2018-02-28 16:36 | RADIOLOGY REPORT (SQ) ---
EXAM DESCRIPTION: U/S BIOPSY THYROID COMPLETED DATE/TIME: 02/28/2018 2:36 pm REASON FOR STUDY: RIGHT THYROID NODULE (E04.1) E04.1 NONTOXIC SINGLE THYROID NODULE COMPARISON: CT chest 02/05/2018 TECHNIQUE: The procedure was discussed with the patient and written informed consent obtained. A ti meout was performed to confirm the procedure and patient's identity. The skin of the neck was preppe d and draped in sterile fashion and 1 mL of 1% lidocaine administered for local anesthesia. Under so nographic guidance, fine needle aspiration biopsy was performed of the mass in the posterior right mi d pole of the thyroid. Three separate aspirations were performed. Hemostasis was obtained with direct manual compression. There were no immediate complications. LIMITATIONS: None. FINDINGS: PATHOLOGY: Pending. IMPRESSION: ULTRASOUND-GUIDED BIOPSY PERFORMED OF A MASS IN THE RIGHT LOBE OF THE THYROID. PATHOLOG Y PENDING AT THE TIME OF DICTATION. COMMENT: Patient medication list reviewed: Yes- Quality ID# [id number]:Eligible professional attests to doc umenting in the medical record they obtained, updated, or reviewed the patient's current medications. TECHNICAL DOCUMENTATION: JOB ID: [id number] [employer]- All Rights Reserved Reading location - IP/workstation name: [email or web address]
== END ==
LOC: RAD 12:55
PROVIDERS: ATTEND Physician Assistant
DX: E04.1 Nontoxic single thyroid nodule (principal)
CPT/HCPCS: 88173 ×2; 60100; J3490

== ENCOUNTER 2018-12-18 15:51 | Inpatient (IN) | payer SELFPAY ==
[2018-12-18] MEDS ORDERED: IPRATROPIUM/ALBUTEROL 0.5-2.5 MG/3 ML AMPUL NEB ONE (16:44)
[2018-12-18] MEDS ORDERED: METHYLPREDNISOLONE INJ 125 MG/2 ML SDV IV ONE (16:47)
--- NOTE | 2018-12-18 16:50 | ER Document Report ---
ED Respiratory Problem - General Chief Complaint: COPD Exacerbation Stated Complaint: POSSIBLE DEHYDRATION AND LOW 02 LEVEL Time Seen by Provider: 12/18/18 16:44 Notes: Patient is having difficulty breathing and decreased respirations over the past 3-4 days. She has a history of COPD, and continues to smoke a pack a day of cigarettes. She has had a cough and congestion for several weeks. She was seen by her primary care doctor who prescribed prednisone and amoxicillin, and did seem to work for a while, but over the last 4 days, family reports that the patient is becoming sleepier and less responsive and confused. She is never been on a ventilator before. Thinks she may have had BiPAP in the past. No history of heart disease or congestive heart failure. TRAVEL OUTSIDE OF THE [place] IN LAST 30 DAYS: No - Related Data Allergies/Adverse Reactions: No Known Allergies Allergy (Verified 12/18/18 15:54) Past Medical History - Social History Smoking Status: Current Every Day Smoker Family History: Reviewed & Not Pertinent, CAD, COPD, Malignancy Pulmonary Medical History: Reports: Hx Bronchitis, Hx COPD Neurological Medical History: Reports: Hx Migraine GI Medical History: Reports: Hx Gastroesophageal Reflux Disease Musculoskeletal Medical History: Reports Hx Arthritis Psychiatric Medical History: Reports: Hx Depression Infectious Medical History: Denies: Hx Hepatitis Past Surgical History: Reports: Hx Hysterectomy Review of Systems - Review of Systems Notes: REVIEW OF SYSTEMS: CONSTITUTIONAL : Denies fever. EENT: Denies eye, ear, nose or mouth or throat pain or other symptoms. CARDIOVASCULAR: Denies chest pain. RESPIRATORY: See HPI. GASTROINTESTINAL: Denies abdominal pain or nausea, or diarrhea. Says she is vomited twice. GENITOURINARY: Denies difficulty or painful urinating, urinary frequency, blood in urine. MUSCULOSKELETAL: Denies back or neck pain. Denies joint pain or swelling. SKIN: Denies rash or skin lesions. NEUROLOGICAL: Denies LOC or altered mental status. Denies headache. Denies sensory loss or motor deficits. ALL OTHER SYSTEMS REVIEWED AND NEGATIVE. Physical Exam - Vital signs Vitals: Pulse Ox 78 L 12/18/18 16:04 Interpretation: Hypoxic - O2 sat 68% at triage. Notes: PHYSICAL EXAMINATION: GENERAL: Sitting up on the stretcher with her hand hanging down. Awakens easily, however. Seems to be sleepy. Answers questions appropriately. Has a very deep productive sounding cough. HEAD: Atraumatic, normocephalic. EYES: Pupils equal round and reactive to light, extraocular movements intact. ENT: oropharynx clear without exudates. Moist mucous membranes. NECK: Normal range of motion, supple. LUNGS: Breath sounds decreased bilaterally with a few scattered wheezes heard. HEART: Regular rate and rhythm without murmurs. ABDOMEN: Soft, nontender. No guarding or rebound. No masses. BACK: No tenderness throughout entire back. EXTREMITIES: Normal range of motion without pain. Trace pitting edema of the lower extremities. Negative Homans bilaterally. NEUROLOGICAL: Normal speech, gait not checked, unable to walk at this time. Normal sensory, motor, and reflex exams. Sleepy but awakens to voice. Oriented x3. PSYCH: Normal mood, normal affect. SKIN: Warm, dry, no rashes. Course - Vital Signs Vital signs: Temp Pulse Resp BP Pulse Ox 25 H 120/68 92 12/18/18 18:18 12/18/18 18:18 12/18/18 18:18 - Laboratory Result Diagrams: 12/18/18 16:10 12/18/18 16:10 Laboratory results interpreted by me: 12/18/18 12/18/18 12/18/18 16:10 16:10 17:15 WBC 3.7 L Hgb 17.4 H Hct 51.1 H MCV 103 H MCH 35.1 H RDW 15.7 H VBG pH 7.28 L VBG pCO2 83.8 H* VBG HCO3 38.1 H Carbon Dioxide 35 H BUN 24 H Creatinine 0.33 L Critical Care Note - Critical Care Note Total time excluding time spent on procedures (mins): 45 Discharge - Discharge Clinical Impression: COPD exacerbation, Acute hypoxemic respiratory failure, Tobacco dependence, Acute exacerbation of chronic obstructive pulmonary disease (COPD) Condition: Fair Disposition: ADMITTED INPATIENT Admitting Provider: Hospitalist Unit Admitted: [facility]
[2018-12-18 16:56] LABS: ABSOLUTE LYMPHOCYTES (AUTO) 0.7 10^3/uL (0.5-4.7); ABSOLUTE MONOCYTES (AUTO) 0.4 10^3/uL (0.1-1.4); ABSOLUTE NEUT (AUTO) 2.6 10^3/uL (1.7-8.2); BASOPHILS % (AUTO) 0.3 % (0-2); EOSINOPHILS % (AUTO) 0.6 % (0-6); HEMATOCRIT 51.1 % (36.0-47.0); HEMOGLOBIN 17.4 g/dL (12.0-15.5); LYMPHOCYTES % (AUTO) 18.4 % (13-45); MEAN CORPUSCULAR HEMOGLOBIN 35.1 pg (27.0-33.4); MEAN CORPUSCULAR VOLUME 103 fl (80-97); MONOCYTES % (AUTO) 11.8 % (3-13); PLATELET COUNT 168 10^3/uL (150-450); RED BLOOD COUNT 4.95 10^6/uL (3.72-5.28); RED CELL DISTRIBUTION WIDTH 15.7 % (11.5-14.0); SEGMENTED NEUTROPHILS % (AUTO) 68.9 % (42-78); TOTAL CELLS COUNTED % (AUTO) 100 %; WHITE BLOOD COUNT 3.7 10^3/uL (4.0-10.5)
[2018-12-18 17:06] LABS: ALANINE AMINOTRANSFERASE 15 U/L (9-52); ALBUMIN 3.8 g/dL (3.5-5.0); ALKALINE PHOSPHATASE 85 U/L (38-126); ANION GAP 7 (5-19); ASPARTATE AMINO TRANSFERASE 26 U/L (14-36); BILIRUBIN,DIRECT 0.3 mg/dL (0.0-0.4); BILIRUBIN,TOTAL 0.4 mg/dL (0.2-1.3); BLOOD UREA NITROGEN 24 mg/dL (7-20); CALCIUM 9.1 mg/dL (8.4-10.2); CARBON DIOXIDE 35 mmol/L (22-30); CHLORIDE 100 mmol/L (98-107); GLUCOSE 91 mg/dL (75-110); POTASSIUM 4.2 mmol/L (3.6-5.0); SODIUM 142.4 mmol/L (137-145); TOTAL PROTEIN 6.9 g/dL (6.3-8.2)
[2018-12-18 17:17] LABS: CREATINE KINASE MB 0.94 ng/mL (<4.55)
[2018-12-18 17:19] LABS: TROPONIN I < 0.012 ng/mL
[2018-12-18 17:33] LABS: VENOUS BLOOD BASE EXCESS 6.9 mmol/L; VENOUS BLOOD HCO3 38.1 mmol/L (20-32); VENOUS BLOOD PH 7.28 (7.30-7.42)
--- NOTE | 2018-12-18 17:49 | RADIOLOGY REPORT (SQ) ---
EXAM DESCRIPTION: CHEST SINGLE VIEW COMPLETED DATE/TIME: 12/18/2018 5:06 pm REASON FOR STUDY: Short of breath, COPD exacerbation COMPARISON: 08/14/2017 EXAM PARAMETERS: NUMBER OF VIEWS: One view. TECHNIQUE: Single frontal radiographic view of the chest acquired. RADIATION DOSE: NA LIMITATIONS: None. FINDINGS: LUNGS AND PLEURA: Mild pulmonary edema. MEDIASTINUM AND HILAR STRUCTURES: No masses. Contour normal. HEART AND VASCULAR STRUCTURES: Heart size is borderline. BONES: No acute findings. HARDWARE: None in the chest. OTHER: No other significant finding. IMPRESSION: Borderline cardiomegaly with mild pulmonary edema. TECHNICAL DOCUMENTATION: JOB ID: [id number]- All Rights Reserved Reading location - IP/workstation name: [email or web address]
--- NOTE | 2018-12-18 17:53 | PDOC H&P ---
History of Present Illness Admission Date/PCP: KYAW EPPERSON MD History of Present Illness: NELLI CHÁVEZ is a 53 year old female patient with past medical history of COPD, depression, GERD and migraine presented with chief complaint of progressively worsening shortness of breath of 4 days duration. Shortly patient was seen at her primary care physician office for the same complaint where she was given p.o. prednisone and amoxicillin and for the first 3-4 days patient states feels better but later her conditions deteriorated today and come to [facility] for further evaluation pneumonia event. On arrival patient found to be hypoxic with O2 saturation of 68%. Patient has been started on bronchodilator and put on BiPAP. When I see the patient she was on full mask BiPAP and still she is wheezing diffusely. No report of fever, chills palpitation or diaphoresis. She does not have any nausea, vomiting, abdominal pain or any change in her bowel habits. Past Medical History Cardiac Medical History: Denies: Myocardial Infarction, Hypertension Pulmonary Medical History: Reports: Bronchitis, Chronic Obstructive Pulmonary Disease (COPD) Denies: Asthma Neurological Medical History: Reports: Migraine Denies: Seizures Endocrine Medical History: Denies: Diabetes Mellitus Type 1, Diabetes Mellitus Type 2, Hyperthyroidism, Hypothyroidism Renal/ Medical History: Denies: End Stage Renal Disease Malignancy Medical History: Denies: Bone Cancer, Breast Cancer, Cervical Cancer, Lung Cancer, Lymphoma GI Medical History: Reports: Gastroesophageal Reflux Disease Denies: Cirrhosis, Crohn's Disease, Hepatitis, Hiatal Hernia, Ulcerative Colitis Musculoskeltal Medical History: Reports: Arthritis Denies: Fibromyalgia, Gout Psychiatric Medical History: Reports: Depression Hematology: Reports: Bleeding Tendencies Denies: Anemia, Sickle Cell Disease Past Surgical History Past Surgical History: Reports: Hysterectomy Denies: Amputation, Mastectomy, Pacemaker Social History Smoking Status: Current Every Day Smoker Frequency of Alcohol Use: None Hx Recreational Drug Use: No Drugs: None Hx Prescription Drug Abuse: No - Advance Directive Resuscitation Status: Full Code Family History Family History: Reviewed & Not Pertinent, CAD, COPD, Malignancy Parental Family History Reviewed: Yes Children Family History Reviewed: Yes Sibling(s) Family History Reviewed.: Yes Medication/Allergy Home Medications: Budesonide/Formoterol Fumarate [Symbicort HFA 160-4.5 mcg Inhaler 6 gm] 2 puff IH Q12 #1 inhaler 08/17/17 Fluticasone Propionate [Flonase Nasal [place] 50 Mcg/[place] 16 gm] 2 spray NASL Q12 #1 spray.pump 08/17/17 Guaifenesin [Mucinex Sr 600 mg Tablet.sa] 1,200 mg PO Q12 #14 tablet.sa 08/17/17 Prednisone [Sterapred Ds] 10 mg PO DAILY #1 tab.ds.pk 08/17/17 Allergies/Adverse Reactions: No Known Allergies Allergy (Verified 12/18/18 15:54) Review of Systems ROS unobtainable: Other - Patient on full mask Physical Exam Vital Signs: Temp Pulse Resp BP Pulse Ox 29 H 119/71 95 12/18/18 17:01 12/18/18 17:01 12/18/18 17:01 General appearance: PRESENT: severe distress, other - Patient looks older than her stated age. Eye exam: PRESENT: conjunctiva pink Mouth exam: PRESENT: dry mucosa Neck exam: ABSENT: carotid bruit, JVD, lymphadenopathy, thyromegaly Respiratory exam: PRESENT: crackles, decreased breath sounds, wheezes GI/Abdominal exam: PRESENT: normal bowel sounds, soft. ABSENT: distended, guarding, mass, organolmegaly, rebound, tenderness Neurological exam: PRESENT: alert, awake Results Laboratory Results: 12/18/18 16:10 12/18/18 16:10 12/18/18 12/18/18 16:10 16:10 WBC 3.7 L RBC 4.95 Hgb 17.4 H Hct 51.1 H MCV 103 H MCH 35.1 H MCHC 34.0 RDW 15.7 H Plt Count 168 Seg Neutrophils % 68.9 Lymphocytes % 18.4 Monocytes % 11.8 Eosinophils % 0.6 Basophils % 0.3 Absolute Neutrophils 2.6 Absolute Lymphocytes 0.7 Absolute Monocytes 0.4 Absolute Eosinophils 0.0 Absolute Basophils 0.0 Sodium 142.4 Potassium 4.2 Chloride 100 Carbon Dioxide 35 H Anion Gap 7 BUN 24 H Creatinine 0.33 L Est GFR ( Amer) > 60 Est GFR (Non-Af Amer) > 60 Glucose 91 Calcium 9.1 Total Bilirubin 0.4 AST 26 ALT 15 Alkaline Phosphatase 85 Total Protein 6.9 Albumin 3.8 12/18/18 16:10 CK-MB (CK-2) 0.94 Troponin I < 0.012 Assessment & Plan - Diagnosis (1) Acute hypoxemic respiratory failure Is this a current diagnosis for this admission?: Yes Plan: We will keep her on BiPAP and supplemental oxygen. (2) COPD exacerbation Is this a current diagnosis for this admission?: Yes Plan: Patient is on supplemental oxygen, bronchodilator, antibiotics and Solu-Medrol. (3) Heavy everyday smoker Is this a current diagnosis for this admission?: Yes Plan: I will counseled and encouraged the patient to quit smoking. (4) Depression Is this a current diagnosis for this admission?: Yes Plan: We will continue all her home medication (5) GERD (gastroesophageal reflux disease) Qualifiers: Esophagitis presence: without esophagitis Qualified Code(s): K21.9 - Gastro-esophageal reflux disease without esophagitis Is this a current diagnosis for this admission?: Yes Plan: We will put her on PPI. - Inpatient Certification Medical Necessity: Need Close Monitoring Due to Risk of Patient Decompensation
[2018-12-18] MEDS ORDERED: ONDANSETRON HCL INJ/PF 4 MG/2 ML SDV IV PRN (17:59)
[2018-12-18 18:02] LABS: VENOUS BLOOD PCO2 83.8 mmHg (35-63)
[2018-12-18] MEDS ORDERED: LEVOFLOXACIN 750 MG/D5W RTU 750 MG/150 ML RTUPB IV ONE (18:47)
--- NOTE | 2018-12-18 19:26 | EKG REPORT ---
SEVERITY:- ABNORMAL ECG - SINUS RHYTHM RIGHT ATRIAL ABNORMALITY PROBABLE RIGHT VENTRICULAR HYPERTROPHY BORDERLINE T ABNORMALITIES, INFERIOR LEADS : Confirmed by: Jack Garibay MD 18-Dec-2018 19:25:52
[2018-12-18] MEDS: ENOXAPARIN SODIUM INJ 40 MG/0.4 ML DISP.SYRIN SUBCUT SCH (21:06)
[2018-12-18] MEDS: IPRATROPIUM/ALBUTEROL 0.5-2.5 MG/3 ML AMPUL NEB SCH (21:08)
[2018-12-19] MEDS ORDERED: METHYLPREDNISOLONE INJ 40 MG/1 ML SDV IV SCH
[2018-12-19] MEDS: IPRATROPIUM/ALBUTEROL 0.5-2.5 MG/3 ML AMPUL NEB SCH ×6 (00:40→20:33)
[2018-12-19] MEDS: METHYLPREDNISOLONE INJ 125 MG/2 ML SDV IV SCH ×5 (00:45→23:05)
[2018-12-19] MEDS: PANTOPRAZOLE SODIUM 20 MG TABLET.DR PO SCH ×2 (05:47→16:45)
[2018-12-19] MEDS ORDERED: LANSOPRAZOLE 15 MG TAB.RAP.DR PO SCH (06:00)
[2018-12-19 06:51] LABS: MEAN CORPUSCULAR VOLUME 103 fl (80-97)
[2018-12-19 07:03] LABS: ARTERIAL BLOOD BASE EXCESS 7.1 mmol/L; ARTERIAL BLOOD H2CO3 2.68 mmol/L (1.05-1.35); ARTERIAL BLOOD HCO3 38.5 mmol/L (20-24); ARTERIAL BLOOD O2 SATURATION 88.9 % (94-98); ARTERIAL BLOOD PH 7.25 (7.35-7.45); ARTERIAL BLOOD PO2 66.6 mmHg (80-100); ARTERIAL BLOOD TOTAL CO2 41.3 mmol/L (21-25)
[2018-12-19 07:05] LABS: ARTERIAL BLOOD FIO2 70%
[2018-12-19 07:07] LABS: ARTERIAL BLOOD PCO2 89.1 mmHg (35-45)
[2018-12-19 07:23] LABS: BLOOD UREA NITROGEN 30 mg/dL (7-20); CALCIUM 8.9 mg/dL (8.4-10.2); GLUCOSE 145 mg/dL (75-110); POTASSIUM 4.7 mmol/L (3.6-5.0)
[2018-12-19 07:29] LABS: CARBON DIOXIDE 38 mmol/L (22-30); CHLORIDE 99 mmol/L (98-107); SODIUM 140.3 mmol/L (137-145)
[2018-12-19 07:32] LABS: ANION GAP 3 (5-19)
[2018-12-19 07:42] LABS: HEMATOCRIT 48.4 % (36.0-47.0); HEMOGLOBIN 16.3 g/dL (12.0-15.5); MEAN CORPUSCULAR HEMOGLOBIN 34.7 pg (27.0-33.4); MEAN CORPUSCULAR HGB CONC 33.8 g/dL (32.0-36.0); PLATELET COUNT 147 10^3/uL (150-450); RED CELL DISTRIBUTION WIDTH 15.5 % (11.5-14.0)
[2018-12-19 07:56] LABS: ABSOLUTE LYMPHOCYTES# (MANUAL) 0.1 10^3/uL (0.5-4.7); ABSOLUTE NEUTROPHILS# (MANUAL) 1.5 10^3/uL (1.7-8.2); BASOPHILS % (MANUAL) 0 % (0-2); EOSINOPHILS % (MANUAL) 0 % (0-6); LYMPHOCYTES % (MANUAL) 4 % (13-45); MONOCYTES % (MANUAL) 2 % (3-13); SEGMENTED NEUTROPHILS % (MAN) 94 % (42-78); TOTAL CELLS COUNTED 50
[2018-12-19 07:57] LABS: ANISOCYTOSIS SLIGHT; PLATELET COMMENT DECREASED; POIKILOCYTOSIS SLIGHT; STOMATOCYTES SLIGHT
[2018-12-19 07:58] LABS: WHITE BLOOD COUNT 1.6 10^3/uL (4.0-10.5)
[2018-12-19] MEDS: ACETAMINOPHEN 325 MG TABLET PO PRN (08:36)
[2018-12-19] MEDS: ENOXAPARIN SODIUM INJ 40 MG/0.4 ML DISP.SYRIN SUBCUT SCH (10:33)
[2018-12-19 11:26] LABS: PATH REVIEW PATHOLOGIST REVIEWED
[2018-12-19 16:47] LABS: ARTERIAL BLOOD BASE EXCESS 10.4 mmol/L; ARTERIAL BLOOD FIO2 70%; ARTERIAL BLOOD H2CO3 2.57 mmol/L (1.05-1.35); ARTERIAL BLOOD HCO3 41.3 mmol/L (20-24); ARTERIAL BLOOD O2 SATURATION 95.2 % (94-98); ARTERIAL BLOOD PO2 86.9 mmHg (80-100); ARTERIAL BLOOD TOTAL CO2 43.9 mmol/L (21-25)
[2018-12-19 16:49] LABS: ARTERIAL BLOOD PCO2 85.5 mmHg (35-45)
[2018-12-19] MEDS: LEVOFLOXACIN 750 MG/D5W RTU 750 MG/150 ML RTUPB IV SCH (17:23)
--- NOTE | 2018-12-19 18:32 | PDOC PROGRESS REPORT ---
Subjective Progress Note for:: 12/19/18 Subjective:: No adverse events overnight. When I saw her she did come off the BiPAP and then put on a nonrebreather so that she could attempt to eat. She was able to talk to me at that time. We have had to adjust her BiPAP settings a couple of times throughout the day in an attempt to try to get her PCO2 down. She does not take any pain medication or sleeping medication at home, but she does have an oxygen concentrator that she bought from someone without a prescription and has been using it herself at home. When she has some shortness of breath a few days ago her turned it up and it has been elevated since then. She says she normally keeps it at about 2 L, but her turned it up to 4 when she was short of breath a few days ago. Reason For Visit: ACUTE HYPOXEMIC RESPIRATORY FAILURE Physical Exam Vital Signs: Temp Pulse Resp BP Pulse Ox 97.7 F 88 16 110/61 92 12/19/18 15:58 12/19/18 16:30 12/19/18 16:30 12/19/18 15:58 12/19/18 16:30 Intake & Output 12/18/18 12/19/18 12/20/18 06:59 06:59 06:59 Intake Total 300 Output Total 300 Balance -300 300 Weight 62.4 kg General appearance: PRESENT: cooperative, disheveled, mild distress Respiratory exam: PRESENT: prolonged expiratory phas, rhonchi, symmetrical, unlabored, wheezes - Faint end expiratory. ABSENT: accessory muscle use, crackles, retraction, tachypnea Cardiovascular exam: PRESENT: RRR, +S1, +S2 Pulses: PRESENT: normal carotid pulses Vascular exam: PRESENT: normal capillary refill GI/Abdominal exam: PRESENT: normal bowel sounds, soft. ABSENT: distended, guarding, rebound, tenderness Extremities exam: ABSENT: clubbing, pedal edema Musculoskeletal exam: PRESENT: normal inspection. ABSENT: deformity Neurological exam: PRESENT: awake, oriented to person, oriented to place, oriented to situation, other - Her responses and her understanding of concepts during our conversation seem to be a bit delayed Psychiatric exam: PRESENT: flat affect Skin exam: PRESENT: dry, warm, other - She had a grayish discoloration in general Results Laboratory Results: 12/19/18 06:37 12/19/18 06:37 12/19/18 12/19/18 12/19/18 05:55 06:37 06:37 WBC 1.6 L D RBC 4.70 Hgb 16.3 H Hct 48.4 H MCV 103 H MCH 34.7 H MCHC 33.8 RDW 15.5 H Plt Count 147 L Seg Neutrophils % Not Reportable Lymphocytes % Not Reportable Monocytes % Not Reportable Eosinophils % Not Reportable Basophils % Not Reportable Absolute Neutrophils Not Reportable Absolute Lymphocytes Not Reportable Absolute Monocytes Not Reportable Absolute Eosinophils Not Reportable Absolute Basophils Not Reportable Carbonic Acid Cancelled HCO3/H2CO3 Ratio Cancelled ABG pH Cancelled ABG pCO2 Cancelled ABG pO2 Cancelled ABG HCO3 Cancelled ABG O2 Saturation Cancelled ABG Base Excess Cancelled FiO2 Cancelled Sodium 140.3 Potassium 4.7 Chloride 99 Carbon Dioxide 38 H Anion Gap 3 L BUN 30 H Creatinine 0.33 L Est GFR ( Amer) > 60 Est GFR (Non-Af Amer) > 60 Glucose 145 H Calcium 8.9 TSH 12/19/18 12/19/18 12/19/18 06:37 06:43 16:29 WBC RBC Hgb Hct MCV MCH MCHC RDW Plt Count Seg Neutrophils % Lymphocytes % Monocytes % Eosinophils % Basophils % Absolute Neutrophils Absolute Lymphocytes Absolute Monocytes Absolute Eosinophils Absolute Basophils Carbonic Acid 2.68 H 2.57 H HCO3/H2CO3 Ratio 14:1 16:1 ABG pH 7.25 L 7.30 L ABG pCO2 89.1 H* 85.5 H* ABG pO2 66.6 L 86.9 ABG HCO3 38.5 H 41.3 H ABG O2 Saturation 88.9 L 95.2 ABG Base Excess 7.1 10.4 FiO2 70% 70% Sodium Potassium Chloride Carbon Dioxide Anion Gap BUN Creatinine Est GFR ( Amer) Est GFR (Non-Af Amer) Glucose Calcium TSH 0.24 L 12/18/18 16:10 CK-MB (CK-2) 0.94 Troponin I < 0.012 Impressions: Chest X-Ray 12/18/18 16:45 IMPRESSION: Borderline cardiomegaly with mild pulmonary edema. Assessment & Plan - Diagnosis (1) Acute respiratory failure with hypoxia and hypercapnia Is this a current diagnosis for this admission?: Yes Plan: Using BiPAP to try to get her CO2 down, currently able to maintain her airway (2) Acute exacerbation of chronic obstructive pulmonary disease (COPD) Is this a current diagnosis for this admission?: Yes Plan: Continue steroids, antibiotics, and bronchodilators (3) Heavy everyday smoker Is this a current diagnosis for this admission?: Yes Plan: Strongly encourage cessation, not just for the prevention of advancement of her disease, but also so she does not cause an explosion with the oxygen concentrator she has without a prescription - Time Time Spent with patient: 25-34 minutes
[2018-12-20] MEDS: IPRATROPIUM/ALBUTEROL 0.5-2.5 MG/3 ML AMPUL NEB SCH ×5 (00:30→16:08)
[2018-12-20] MEDS: ACETAMINOPHEN 325 MG TABLET PO PRN (00:32)
[2018-12-20] MEDS: METHYLPREDNISOLONE INJ 125 MG/2 ML SDV IV SCH ×3 (05:17→18:03)
[2018-12-20] MEDS: PANTOPRAZOLE SODIUM 20 MG TABLET.DR PO SCH ×2 (05:17→16:29)
[2018-12-20] MEDS: ENOXAPARIN SODIUM INJ 40 MG/0.4 ML DISP.SYRIN SUBCUT SCH (11:02)
[2018-12-20 11:32] LABS: ARTERIAL BLOOD BASE EXCESS 10.7 mmol/L; ARTERIAL BLOOD H2CO3 2.17 mmol/L (1.05-1.35); ARTERIAL BLOOD HCO3 39.9 mmol/L (20-24); ARTERIAL BLOOD O2 SATURATION 96.6 % (94-98); ARTERIAL BLOOD PH 7.36 (7.35-7.45); ARTERIAL BLOOD PO2 94.2 mmHg (80-100); ARTERIAL BLOOD TOTAL CO2 42.1 mmol/L (21-25)
[2018-12-20 11:34] LABS: ARTERIAL BLOOD FIO2 70%; ARTERIAL BLOOD PCO2 72.2 mmHg (35-45)
[2018-12-20 16:15] VITALS: BP 121/63
[2018-12-20 16:46] LABS: ARTERIAL BLOOD BASE EXCESS 11.4 mmol/L; ARTERIAL BLOOD H2CO3 2.03 mmol/L (1.05-1.35); ARTERIAL BLOOD HCO3 39.9 mmol/L (20-24); ARTERIAL BLOOD O2 SATURATION 79.9 % (94-98); ARTERIAL BLOOD PCO2 67.6 mmHg (35-45); ARTERIAL BLOOD PH 7.39 (7.35-7.45)
[2018-12-20 16:47] LABS: ARTERIAL BLOOD FIO2 2L
[2018-12-20] MEDS: LEVOFLOXACIN 750 MG/D5W RTU 750 MG/150 ML RTUPB IV SCH (18:03)
--- NOTE | 2018-12-20 18:36 | PDOC DISCHARGE SUMMARY ---
General - Admit/Disc Date/PCP Admission Date/Primary Care Provider: 12/18/18 17:40 KYAW EPPERSON MD Discharge Date: 12/20/18 - Discharge Diagnosis (1) Acute respiratory failure with hypoxia and hypercapnia Is this a current diagnosis for this admission?: Yes Summary: Actually acute on chronic. She is chronically hypoxemic and is a chronic CO2 retainer. We got her CO2 down with BiPAP, and her ABG showed a normal pH normal bicarbonate with her CO2 in the low 70s. Her mental status had improved substantially when she was brought from 90 down to the low 70s. We determined that she should be on 3 L at home. Were going to make sure she has follow-up with a brush operator. (2) Acute exacerbation of chronic obstructive pulmonary disease (COPD) Is this a current diagnosis for this admission?: Yes Summary: She improved with BiPAP, steroids, and antibiotics. She has bronchodilators and home meds for COPD. We will send her with a burst of prednisone and a prescription for doxycycline. (3) Heavy everyday smoker Is this a current diagnosis for this admission?: Yes Summary: Strongly recommended that she quit smoking to halt the progress of her condition. - Additional Information Resuscitation Status: Full Code Discharge Diet: Regular Discharge Activity: Activity As Tolerated, Balance Activity w/Rest Prescriptions: Doxycycline Hyclate 100 mg PO BID #10 capsule Prednisone [Deltasone 20 mg Tablet] 60 mg PO DAILY #15 tablet Home Medications: Budesonide/Formoterol Fumarate [Symbicort HFA 160-4.5 mcg Inhaler 6 gm] 2 puff IH Q12 12/19/18 Fluticasone Propionate [Flonase Nasal [place] 50 Mcg/[place]owler 16 gm] 2 sprays NASL Q12 12/19/18 Tiotropium [place] [Spiriva Handihaler 5 Cap/Kit (18 Mcg/Cap)] 1 cap IH DAILY 12/19/18 Doxycycline Hyclate 100 mg PO BID #10 capsule 12/20/18 Prednisone [Deltasone 20 mg Tablet] 60 mg PO DAILY #15 tablet 12/20/18 History of Present Illness History of Present Illness: NELLI CHÁVEZ is a 53 year old female with past medical history of COPD, depression, GERD and migraine presented with chief complaint of progressively worsening shortness of breath of 4 days duration. Shortly patient was seen at her primary care physician office for the same complaint where she was given p.o. prednisone and amoxicillin and for the first 3-4 days patient states feels better but later her conditions deteriorated today and come to [facility] for further evaluation pneumonia event. On arrival patient found to be hypoxic with O2 saturation of 68%. Patient has been started on bronchodilator and put on BiPAP. When I see the patient she was on full mask BiPAP and still she is wheezing diffusely. No report of fever, chills palpitation or diaphoresis. She does not have any nausea, vomiting, abdominal pain or any change in her bowel habits. Hospital Course Hospital Course: After a day of some steroids the BiPAP started to have some effect. As noted above, suspect she has a chronic CO2 retainer and cautioned her about keeping her SPO2 greater than about 92%. I told her that if her family checks at home, as long as she is somewhere between 88-92%, they should not turn up her oxygen. Apparently when she was I am not feeling well somebody turned her oxygen up pretty high, and I again strongly cautioned against doing that. We also set her up with a pulmonology appointment. She will finish a burst of prednisone and doxycycline at home. Her labs and examination were reassuring and she was discharged in good condition. Physical Exam Vital Signs: Temp Pulse Resp BP Pulse Ox 97.6 F 87 18 129/97 H 85 L 12/20/18 15:54 12/20/18 16:08 12/20/18 16:08 12/20/18 15:54 12/20/18 16:08 Intake & Output 12/19/18 12/20/18 12/21/18 06:59 06:59 06:59 Intake Total 930 722 Output Total 300 0 Balance -300 930 722 Weight 62.4 kg 62.6 kg General appearance: PRESENT: cooperative, disheveled, no apparent distress Respiratory exam: PRESENT: prolonged expiratory phas, rhonchi, symmetrical, unlabored. ABSENT: accessory muscle use, crackles, retraction, tachypnea, wheezes Cardiovascular exam: PRESENT: RRR, +S1, +S2 Pulses: PRESENT: normal carotid pulses Vascular exam: PRESENT: normal capillary refill GI/Abdominal exam: PRESENT: normal bowel sounds, soft. ABSENT: distended, guarding, rebound, tenderness Extremities exam: ABSENT: clubbing, pedal edema Musculoskeletal exam: PRESENT: normal inspection. ABSENT: deformity Neurological exam: PRESENT: awake, oriented to person, oriented to place, oriented to situation Psychiatric exam: PRESENT: flat affect Skin exam: PRESENT: dry, warm, other - She had a grayish discoloration in general Results Laboratory Results: 12/19/18 06:37 12/19/18 06:37 12/20/18 12/20/18 11:17 16:32 Carbonic Acid 2.17 H 2.03 H HCO3/H2CO3 Ratio 18:1 19:1 ABG pH 7.36 7.39 ABG pCO2 72.2 H* 67.6 H ABG pO2 94.2 46.0 L ABG HCO3 39.9 H 39.9 H ABG O2 Saturation 96.6 79.9 L ABG Base Excess 10.7 11.4 FiO2 70% 2L 12/18/18 16:10 CK-MB (CK-2) 0.94 Troponin I < 0.012 Impressions: Chest X-Ray 12/18/18 16:45 IMPRESSION: Borderline cardiomegaly with mild pulmonary edema. Qualifiers - * PATIENT BEING DISCHARGED WITH ANY OF THE FOLLOWING DIAGNOSIS: No
== END 2018-12-20 20:00 | disposition home or self-care (01) | DRG 189 ==
LOC: ER 15:51 → EH 17:40 → 3S 22:55
PROVIDERS: ADMIT Internal Medicine; ATTEND Internal Medicine
DX: J96.22 Acute and chronic respiratory failure with hypercapnia (principal); J44.1 Chronic obstructive pulmonary disease with (acute) exacerbation; J96.21 Acute and chronic respiratory failure with hypoxia; K21.9 Gastro-esophageal reflux disease without esophagitis; E86.0 Dehydration; F32.9 Major depressive disorder, single episode, unspecified; F17.210 Nicotine dependence, cigarettes, uncomplicated
CPT/HCPCS: 36415; 71045; 80048; 80053; 82553; 82803; 84443; 84484; 85025; 87040; 93005; 93010; 94640; 94660; 96374; 99291; J1650; J1956; J2930; J3490; J7620

== ENCOUNTER 2019-04-02 12:18 | Emergency (ER) | payer SELFPAY ==
[2019-04-02] MEDS ORDERED: PROCHLORPERAZINE EDISYLATE INJ 10 MG/2 ML VIAL IV ONE (12:37)
[2019-04-02] MEDS ORDERED: NORMAL SALINE 1000 ML 1,000 ML IV ONE (12:37)
[2019-04-02] MEDS ORDERED: IPRATROPIUM/ALBUTEROL 0.5-2.5 MG/3 ML AMPUL NEB ONE ×3 (12:37→15:29)
[2019-04-02] MEDS ORDERED: DIPHENHYDRAMINE HCL 50 MG/ML VIAL IV ONE (12:37)
--- NOTE | 2019-04-02 12:38 | ER Document Report ---
ED Medical Screen (RME) - General Chief Complaint: Headache Stated Complaint: BREATHING PROBLEMS Time Seen by Provider: 04/02/19 12:35 Primary Care Provider: KYAW EPPERSON MD [Primary Care Provider] - Follow up as needed Mode of Arrival: Ambulatory Information source: Patient Notes: Patient states that she drove here and did not bring her portable oxygen. Lyla so's initial oxygen sat on room air after walking into the emergency department was 83, once patient was applied to the 2 L of oxygen that she supposed to wear at home her oxygen saturation ranged from 93 to 95% on 2 L.patient denies any difficulty breathing or chest pain. Patient presents complaining of severe headache pain for 5 days with dizziness. Patient states that the headache pain occasionally makes her nauseous and that she has vomited although has not vomited any today. Patient last vomited yesterday. Patient does have a history of COPD and does continue to smoke. I have greeted and performed a rapid initial assessment of this patient. A comprehensive ED assessment and evaluation of the patient, analysis of test results and completion of the medical decision making process will be conducted by additional ED providers. TRAVEL OUTSIDE OF THE [place] IN LAST 30 DAYS: No - Related Data Allergies/Adverse Reactions: No Known Allergies Allergy (Verified 04/02/19 12:26) Past Medical History - Social History Frequency of alcohol use: None Drug Abuse: None - Past Medical History Cardiac Medical History: Denies: Hx Heart Attack, Hx Hypertension Pulmonary Medical History: Reports: Hx Bronchitis, Hx COPD - home Denies: Hx Asthma Neurological Medical History: Reports: Hx Migraine. Denies: Hx Cerebrovascular Accident, Hx Seizures Endocrine Medical History: Denies: Hx Diabetes Mellitus Type 1, Hx Diabetes Mellitus Type 2, Hx Hyperthyroidism, Hx Hypothyroidism Renal/ Medical History: Denies: Hx End Stage Renal Disease, Hx Peritoneal Dialysis Malignancy Medical History: Denies: Hx Bone Cancer, Hx Breast Cancer, Hx Cervical Cancer, Hx Lung Cancer, Hx Lymphoma GI Medical History: Reports: Hx Gastroesophageal Reflux Disease. Denies: Hx Cirrhosis, Hx Crohn's Disease, Hx Hepatitis, Hx Hiatal Hernia, Hx Ulcer, Hx Ulce rative Colitis Musculoskeltal Medical History: Reports Hx Arthritis, Denies Hx Fibromyalgia, Denies Hx Gout Psychiatric Medical History: Reports: Hx Depression Infectious Medical History: Denies: Hx Hepatitis Past Surgical History: Reports: Hx Hysterectomy. Denies: Hx Mastectomy, Hx Open Heart Surgery, Hx Pacemaker - Immunizations History of Influenza Vaccine for 07/2017 - 12/2017 Season: Refused Physical Exam - Vital signs Vitals: Temp Pulse Resp BP Pulse Ox 97.9 F 99 28 H 145/85 H 83 L 04/02/19 12:23 04/02/19 12:23 04/02/19 12:23 04/02/19 12:23 04/02/19 12:23 - Respiratory Respiratory status: No respiratory distress Breath sounds: Nonproductive cough, Rhonchi, Wheezing Course - Vital Signs Vital signs: Temp Pulse Resp BP Pulse Ox 97.9 F 99 28 H 145/85 H 83 L 04/02/19 12:23 04/02/19 12:23 04/02/19 12:23 04/02/19 12:23 04/02/19 12:23 Doctor's Discharge - Discharge Referrals: KYAW EPPERSON MD [Primary Care Provider] - Follow up as needed
[2019-04-02 13:28] LABS: ABSOLUTE LYMPHOCYTES (AUTO) 0.9 10^3/uL (0.5-4.7); ABSOLUTE MONOCYTES (AUTO) 0.5 10^3/uL (0.1-1.4); ABSOLUTE NEUT (AUTO) 2.8 10^3/uL (1.7-8.2); BASOPHILS % (AUTO) 0.6 % (0-2); EOSINOPHILS % (AUTO) 0.6 % (0-6); HEMOGLOBIN 19.3 g/dL (12.0-15.5); LYMPHOCYTES % (AUTO) 21.1 % (13-45); MEAN CORPUSCULAR HEMOGLOBIN 34.6 pg (27.0-33.4); MEAN CORPUSCULAR HGB CONC 33.8 g/dL (32.0-36.0); MEAN CORPUSCULAR VOLUME 103 fl (80-97); MONOCYTES % (AUTO) 11.2 % (3-13); PLATELET COUNT 130 10^3/uL (150-450); RED BLOOD COUNT 5.58 10^6/uL (3.72-5.28); RED CELL DISTRIBUTION WIDTH 16.7 % (11.5-14.0); SEGMENTED NEUTROPHILS % (AUTO) 66.5 % (42-78); TOTAL CELLS COUNTED % (AUTO) 100 %; WHITE BLOOD COUNT 4.3 10^3/uL (4.0-10.5)
[2019-04-02 13:32] LABS: HEMATOCRIT 57.2 % (36.0-47.0)
[2019-04-02 13:47] LABS: ALANINE AMINOTRANSFERASE 17 U/L (9-52); ALKALINE PHOSPHATASE 74 U/L (38-126); ANION GAP 8 (5-19); ASPARTATE AMINO TRANSFERASE 21 U/L (14-36); BILIRUBIN,DIRECT 0.3 mg/dL (0.0-0.4); BILIRUBIN,TOTAL 0.4 mg/dL (0.2-1.3); BLOOD UREA NITROGEN 27 mg/dL (7-20); CALCIUM 9.4 mg/dL (8.4-10.2); CARBON DIOXIDE 32 mmol/L (22-30); CHLORIDE 101 mmol/L (98-107); GLUCOSE 93 mg/dL (75-110); POTASSIUM 4.2 mmol/L (3.6-5.0); SODIUM 140.8 mmol/L (137-145); TOTAL PROTEIN 7.2 g/dL (6.3-8.2)
--- NOTE | 2019-04-02 13:49 | RADIOLOGY REPORT (SQ) ---
EXAM DESCRIPTION: CHEST 2 VIEWS COMPLETED DATE/TIME: 04/02/2019 1:38 pm REASON FOR STUDY: dizziness COMPARISON: 12/18/2018 EXAM PARAMETERS: NUMBER OF VIEWS: two views TECHNIQUE: Digital Frontal and Lateral radiographic views of the chest acquired. RADIATION DOSE: NA LIMITATIONS: none FINDINGS: LUNGS AND PLEURA: Lungs are hyperexpanded. There is no infiltrate, effusion, or mass. MEDIASTINUM AND HILAR STRUCTURES: No masses or contour abnormalities. HEART AND VASCULAR STRUCTURES: Heart size is borderline. There is no pulmonary edema. BONES: No acute findings. HARDWARE: None in the chest. OTHER: No other significant finding. IMPRESSION: Borderline heart size with no pulmonary edema. Chronic lung changes. TECHNICAL DOCUMENTATION: JOB ID: [id number] [employer]- All Rights Reserved Reading location - IP/workstation name: [email or web address]
--- NOTE | 2019-04-02 13:56 | RADIOLOGY REPORT (SQ) ---
EXAM DESCRIPTION: CT HEAD WITHOUT COMPLETED DATE/TIME: 04/02/2019 1:46 pm REASON FOR STUDY: FUENTES COMPARISON: None. TECHNIQUE: Axial images acquired through the brain without intravenous contrast. Images reviewed wi th bone, brain and subdural windows. Additional sagittal and coronal reconstructions were generated. Images stored on PACS. All CT scanners at this facility use dose modulation, iterative reconstruction, and/or weight based d osing when appropriate to reduce radiation dose to as low as reasonably achievable (ALARA). [facility]: Dose Right [facility]: CareDose [facility]: Dose Right [facility]: Teradose 4D [facility]: KSE RADIATION DOSE: CT Rad equipment meets quality standard of care and radiation dose reduction techniq ues were employed. CTDIvol: 53.2 mGy. DLP: 1070 mGy-cm. mGy. LIMITATIONS: None. FINDINGS: VENTRICLES: Normal size and contour. CEREBRUM: No masses. No hemorrhage. No midline shift. No evidence for acute infarction. Normal gra y/white matter differentiation. No areas of low density in the white matter. CEREBELLUM: No masses. No hemorrhage. No alteration of density. No evidence for acute infarction. EXTRAAXIAL SPACES: No fluid collections. No masses. ORBITS AND GLOBE: No intra- or extraconal masses. Normal contour of globe without masses. CALVARIUM: No fracture. PARANASAL SINUSES: No fluid or mucosal thickening. SOFT TISSUES: No mass or hematoma. OTHER: No other significant finding. IMPRESSION: NORMAL BRAIN CT WITHOUT CONTRAST. EVIDENCE OF ACUTE STROKE: NO. COMMENT: Quality ID # [id number]: Final reports with documentation of one or more dose reduction techniques (e.g., Automated exposure control, adjustment of the mA and/or kV according to patient size, use of iterative reconstruction technique) TECHNICAL DOCUMENTATION: JOB ID: [id number] [employer]- All Rights Reserved Reading location - IP/workstation name: [email or web address]
--- NOTE | 2019-04-02 15:22 | ER Document Report ---
ED General - General Chief Complaint: Headache Stated Complaint: BREATHING PROBLEMS Time Seen by Provider: 04/02/19 12:35 Primary Care Provider: KYAW EPPERSON MD [Primary Care Provider] - Follow up tomorrow Mode of Arrival: Ambulatory Information source: Patient, [facility] Records Notes: 43-year-old female with history of migraine headaches, COPD (continues to smoke ), reflux presents with complaint of headache that started 5 days prior to arrival. Patient describes a headache as feeling like there is a band timed around her head. She has had associated nausea and vomiting as well as some lightheadedness. Patient states that she drove here and did not bring her portable oxygen. Patient's initial oxygen sat on room air after walking into the emergency department was 83, once patient was applied to the 2 L of oxygen that she supposed to wear at home her oxygen saturation ranged from 93 to 95% on 2 L.patient denies any difficulty breathing or chest pain. Patient has not vomited any today. Patient last vomited yesterday. Patient did receive IV fluids and Benadryl prior to my exam and reports complete resolution of her headache, nausea and dizziness. TRAVEL OUTSIDE OF THE [place] IN LAST 30 DAYS: No - HPI Onset: Other Onset/Duration: Gradual, Persistent, Gone Quality of pain: Throbbing Severity: Moderate Pain Level: 2 Associated symptoms: Headache, Nausea, Vomiting, Other - Dizziness. denies: Body/muscle aches, Chest pain, Nonproductive cough, Fever, Shortness of breath Exacerbated by: Denies Relieved by: Denies Similar symptoms previously: Yes Recently seen / treated by doctor: Yes - Related Data Allergies/Adverse Reactions: No Known Allergies Allergy (Verified 04/02/19 12:26) Past Medical History - General Information source: Patient - Social History Smoking Status: Current Every Day Smoker Cigarette use (# per day): Yes - 10 Smoking Education Provided: Yes - Smoking cessation counseling was provided for 4 minutes at the bedside Frequency of alcohol use: None Drug Abuse: None Lives with: Spouse/Significant other Family History: Reviewed & Not Pertinent, CAD, COPD, Malignancy Patient has suicidal ideation: No Patient has homicidal ideation: No - Past Medical History Cardiac Medical History: Denies: Hx Heart Attack, Hx Hypertension Pulmonary Medical History: Reports: Hx Bronchitis, Hx COPD - home Denies: Hx Asthma Neurological Medical History: Reports: Hx Migraine. Denies: Hx Cerebrovascular Accident, Hx Seizures Endocrine Medical History: Denies: Hx Diabetes Mellitus Type 1, Hx Diabetes Mellitus Type 2, Hx Hyperthyroidism, Hx Hypothyroidism Renal/ Medical History: Denies: Hx End Stage Renal Disease, Hx Peritoneal Dialysis Malignancy Medical History: Denies: Hx Bone Cancer, Hx Breast Cancer, Hx Cervical Cancer, Hx Lung Cancer, Hx Lymphoma GI Medical History: Reports: Hx Gastroesophageal Reflux Disease. Denies: Hx Cirrhosis, Hx Crohn's Disease, Hx Hepatitis, Hx Hiatal Hernia, Hx Ulcer, Hx Ulcerative Colitis Musculoskeletal Medical History: Reports Hx Arthritis, Denies Hx Fibromyalgia, Denies Hx Gout Psychiatric Medical History: Reports: Hx Depression Infectious Medical History: Denies: Hx Hepatitis Past Surgical History: Reports: Hx Hysterectomy. Denies: Hx Mastectomy, Hx Open Heart Surgery, Hx Pacemaker Review of Systems - Review of Systems Notes: REVIEW OF SYSTEMS: CONSTITUTIONAL : Denies fever, chills, or sweats. Denies recent illness. Denies weight loss, recent hospitalizations. EENT: Denies visual changes, eye pain. Denies sore throat, oral lesions, difficulty swallowing. CARDIOVASCULAR: Denies chest pain. Denies palpitations. Denies lower extremity edema. RESPIRATORY: Denies cough. Denies shortness of breath, wheezing. GASTROINTESTINAL: Denies abdominal pain or distention. Denies diarrhea. Denies blood in vomitus, stools, or per rectum. Denies black, tarry stools. Denies constipation. GENITOURINARY: Denies difficulty urinating, painful urination, frequency, blood in urine, or vaginal discharge. MUSCULOSKELETAL: Denies back or neck pain or stiffness. Denies joint pain or swelling. SKIN: Denies rash, lesions or sores. HEMATOLOGIC : Denies easy bruising or bleeding. LYMPHATIC: Denies swollen glands. NEUROLOGICAL: Denies confusion or altered mental status. Denies loss of consciousness. Denies weakness or paralysis. Denies problems difficulty with ambulation, slurred speech. Denies sensory loss, numbness, or tingling. Denies seizures. PSYCHIATRIC: Denies anxiety or stress. Denies depression, suicidal ideation, or homicidal ideation. Denies visual or auditory hallucinations. Physical Exam - Vital signs Vitals: Temp Pulse Resp BP Pulse Ox 97.9 F 99 28 H 145/85 H 83 L 04/02/19 12:23 04/02/19 12:23 04/02/19 12:23 04/02/19 12:23 04/02/19 12:23 - Notes Notes: PHYSICAL EXAMINATION: GENERAL: Well-appearing, well-nourished sleepy but easily aroused HEAD: Atraumatic, normocephalic. EYES: Pupils equal round and reactive to light, extraocular movements intact, conjunctiva are normal. ENT: Nares patent, oropharynx clear without exudates. Moist mucous membranes. NECK: Normal range of motion, supple without lymphadenopathy LUNGS: Breath sounds clear to auscultation bilaterally and equal. No wheezes rales or rhonchi. HEART: Regular rate and rhythm without murmurs ABDOMEN: Soft, nontender, nondistended abdomen. No guarding, no rebound. No masses appreciated. Female : deferred Musculoskeletal: Normal range of motion, no pitting or edema. No cyanosis. NEUROLOGICAL: Cranial nerves grossly intact. Normal speech, normal gait. Normal sensory, motor exams PSYCH: Normal mood, normal affect. SKIN: Warm, Dry, normal turgor, no rashes or lesions noted. Course - Re-evaluation Re-evalutation: 04/02/19 15:20 Laboratory 04/02/19 04/02/19 04/02/19 13:05 13:05 13:05 WBC 4.3 RBC 5.58 H Hgb 19.3 H Hct 57.2 H MCV 103 H MCH 34.6 H MCHC 33.8 RDW 16.7 H Plt Count 130 L Seg Neutrophils % 66.5 Lymphocytes % 21.1 Monocytes % 11.2 Eosinophils % 0.6 Basophils % 0.6 Absolute Neutrophils 2.8 Absolute Lymphocytes 0.9 Absolute Monocytes 0.5 Absolute Eosinophils 0.0 Absolute Basophils 0.0 Sodium 140.8 Potassium 4.2 Chloride 101 Carbon Dioxide 32 H Anion Gap 8 BUN 27 H Creatinine 0.52 Est GFR ( Amer) > 60 Est GFR (Non-Af Amer) > 60 Glucose 93 Calcium 9.4 Total Bilirubin 0.4 Direct Bilirubin 0.3 Neonat Total Bilirubin Not Reportable Neonat Direct Bilirubin Not Reportable Neonat Indirect Bili Not Reportable AST 21 ALT 17 Alkaline Phosphatase 74 Troponin I < 0.012 Total Protein 7.2 Albumin 4.0 Chest X-Ray 04/02/19 12:36 IMPRESSION: Borderline heart size with no pulmonary edema. Chronic lung changes. Head CT 04/02/19 12:36 IMPRESSION: NORMAL BRAIN CT WITHOUT CONTRAST. EVIDENCE OF ACUTE STROKE: NO. Temp Pulse Resp BP Pulse Ox 97.9 F 99 28 H 145/85 H 83 L 04/02/19 12:23 04/02/19 12:23 04/02/19 12:23 04/02/19 12:23 04/02/19 12:23 53-year-old female presents with complaint of headache that was not going for 5 days. Sent here by her primary care physician. Did receive IV Benadryl and fluids and reports complete resolution of her symptoms. Vital signs within normal limits except for hypoxia but this is due to the patient not wearing her oxygen that she is supposed to wear continuously. On 2 L patient is satting 99%. Patient states that the headache was gradual in onset, not associated with fever, stiff neck or trauma. Patient denies any associated slurred speech, weakness. CBC is without leukocytosis or anemia. CMP shows no significant electrolyte abnormality. Cardiac enzymes are also within normal limits. She has had prior similar headaches. Patient was discharged home in improved condition. Patient was evaluated and treated as appropriate for the patient's presenting symptoms and complaint, with consideration of any critical or life threatening conditions that may be associated with their obtained history and exam as noted above. All results were discussed with patient. Patient provided the opportunity to ask questions, and express concerns. Patient was educated on treatments based on their presumed diagnosis as noted above. At this time we will discharge the patient with return precautions and follow-up recommendations. Verbal discharge instructions given a the bedside. Medication warnings reviewed. Patient is in agreement with this plan and has verbalized understanding of return precautions. After careful consideration I feel that that patient can be safely discharged from the emergency department, they were advised to followup with a primary care physician in 2-3 days. Dictation on this chart was performed using voice recognition software and may result in unintended grammatical, spelling, syntax or errors. - Vital Signs Vital signs: Temp Pulse Resp BP Pulse Ox 97.9 F 99 20 108/67 91 L 04/02/19 12:23 04/02/19 12:23 04/02/19 16:01 04/02/19 16:00 04/02/19 16:01 - Laboratory Result Diagrams: 04/02/19 13:05 04/02/19 13:05 Laboratory results interpreted by me: 04/02/19 04/02/19 13:05 13:05 RBC 5.58 H Hgb 19.3 H Hct 57.2 H MCV 103 H MCH 34.6 H RDW 16.7 H Plt Count 130 L Carbon Dioxide 32 H BUN 27 H - Diagnostic Test Radiology reviewed: Image reviewed, Reports reviewed - EKG Interpretation by Me EKG shows normal: Sinus rhythm Rate: Normal Rhythm: NSR When compared to previous EKG there are: No significant change Discharge - Discharge Clinical Impression: Headache Qualifiers: Headache type: unspecified Headache chronicity pattern: unspecified pattern Intractability: not intractable Qualified Code(s): R51 - Headache Nausea & vomiting Qualifiers: Vomiting type: unspecified Vomiting Intractability: non-intractable Qualified Code(s): R11.2 - Nausea with vomiting, unspecified Condition: Good Disposition: HOME, SELF-CARE Instructions: Headache ([facility]), Vomiting ([facility]) Additional Instructions: You have been seen in the Emergency Department (ED) for a headache. Please use Tylenol (acetaminophen) or Motrin (ibuprofen) as needed for symptoms, but only as written on the box. As we have discussed, please follow up with your primary care doctor as soon as possible regarding today's ED visit and your headache symptoms. Call your doctor or return to the ED if you have a worsening headache, sudden and severe headache, confusion, slurred speech, facial droop, weakness or numbness in any arm or leg, extreme fatigue, or other symptoms that concern you. Follow up with your -79 hours for further care or return to the ED IMMEDIATELY if symptoms worsen or you have any concerns. If you cannot afford to follow up with your primary care physician a list of low cost clinics have been provided at the end of your discharge papers as well. Most prescribed medications have multiple side effects. The safest thing to do is when filling your prescription speak to your pharmacist regarding possible interactions with your normal home medications and over the counter medications such as Ibuprofen, Tylenol, Benadryl. If you experience any symptoms that cause you discomfort or concern you should discontinue the medication immediately and return to the emergency room or call your primary care physician. Prescriptions: Metoclopramide HCl [Reglan 10 mg Tablet] 1 tab PO Q8H PRN #10 tablet PRN Reason: For Headache Forms: Elevated Blood Pressure Referrals: KYAW EPPERSON MD [Primary Care Provider] - Follow up tomorrow
[2019-04-02 16:18] VITALS: BP 108/67
--- NOTE | 2019-04-02 22:04 | EKG REPORT ---
SEVERITY:- ABNORMAL ECG - SINUS RHYTHM RIGHT ATRIAL ABNORMALITY PROBABLE RIGHT VENTRICULAR HYPERTROPHY : Confirmed by: Karlee Segura 02-Apr-2019 22:03:43
== END 2019-04-02 16:28 | disposition home or self-care (01) ==
LOC: ER 12:18
DX: R51 Headache (principal); R11.2 Nausea with vomiting, unspecified; R42 Dizziness and giddiness; J44.9 Chronic obstructive pulmonary disease, unspecified; R09.02 Hypoxemia; Y92.238 Other place in hospital as the place of occurrence of the external cause; T41.5X6A Underdosing of therapeutic gases, initial encounter; Z91.128 Patient's intentional underdosing of medication regimen for other reason; Z91.14 Patient's other noncompliance with medication regimen; Z99.81 Dependence on supplemental oxygen; F17.210 Nicotine dependence, cigarettes, uncomplicated; Z71.6 Tobacco abuse counseling; Z86.69 Personal history of other diseases of the nervous system and sense organs; Z87.19 Personal history of other diseases of the digestive system
CPT/HCPCS: 93005; 99406; 94640 ×2; 99284; 96361; 96374; 96375; 36415; 85025; 80053; 84484; 71046; 70450; 93010; J1200; J0780; J7030; J7620